=== PATIENT | male | born 1950 | race Caucasian/White ===

== ENCOUNTER 2020-12-03 10:38 | Outpatient (REF) | payer MEDICARE, SELFPAY ==
[2020-12-03 11:54] LABS: Estimated Average Glucose 123 mg/dL; Hemoglobin A1c % 5.9 %
[2020-12-03 12:11] LABS: Alanine Aminotransferase 56 U/L (0-40); Albumin Level 4.5 g/dL (3.5-5.0); Alkaline Phosphatase 113 U/L (39-117); Aspartate Amino Transferase 36 U/L (5-37); Bilirubin Direct 0.4 mg/dL (0.0-0.5); Bilirubin Total 1.1 mg/dL (0.0-1.0); Cholesterol 201 mg/dL; Glucose Fasting 110 mg/dL (60-99); HDL Cholesterol 46 mg/dL; LDL Cholesterol Calculated 120 mg/dl; Total Protein 7.5 g/dL (6.5-8.0); Triglycerides 179 mg/dL
[2020-12-03 12:58] LABS: Reflex LDLD? No
== END 2020-12-03 10:39 | disposition home or self-care (01) ==
LOC: HO.LNP 10:38
PROVIDERS: Visit Provider Internal Medicine
DX: R73.03 Prediabetes (principal); R79.89 Other specified abnormal findings of blood chemistry; E78.00 Pure hypercholesterolemia, unspecified
CPT/HCPCS: 80061; 80076; 82947; 83036

== ENCOUNTER 2021-06-03 10:50 | Outpatient (REF) | payer MEDICARE, SELFPAY ==
[2021-06-03 10:55] LABS: MANUAL DIFF FLAG NO
[2021-06-03 11:07] LABS: Basophils Absolute Auto 0.1 X10*3/uL (0.0-0.2); Eosinophils Absolute Auto 0.3 X10*3/uL (0.0-0.4); Eosinophils Percent Auto 4.1 % (0-4); Hematocrit 49.4 % (42-52); Hemoglobin 16.3 g/dl (14.0-18.0); Imm Gran Abs Auto 0.02 X10*3/uL (0.00-0.03); Imm Gran Pct Auto 0.3 % (0.0-0.4); Lymphocytes Absolute Auto 0.9 X10*3/uL (1.2-4.9); Lymphocytes Percent Auto 15.4 % (20-40); Mean Corpuscular Hemoglobin 30.2 pg (27.0-33.0); Mean Corpuscular Volume 91.5 fL (80-98); Mean Platelet Volume 10.8 fL (9.4-12.4); Monocytes Absolute Auto 0.7 X10*3/uL (0.1-1.2); Monocytes Percent Auto 11.5 % (2-11); Neutrophils Absolute Auto 4.1 X10*3/uL (2.0-8.3); Neutrophils Percent Auto 67.7 % (45-73); Platelet Count 219 X10*3/uL (160-400); Red Cell Distribution Width 13.1 % (11.0-16.0); White Blood Count 6.1 X10*3/uL (4.8-10.8)
[2021-06-03 11:34] LABS: Estimated Average Glucose 123 mg/dL; Hemoglobin A1c % 5.9 %
[2021-06-03 11:36] LABS: Alanine Aminotransferase 47 U/L (0-40); Albumin Level 4.1 g/dL (3.5-5.0); Alkaline Phosphatase 92 U/L (39-117); Anion Gap 16 (12-20); Aspartate Amino Transferase 40 U/L (5-37); Bilirubin Total 1.8 mg/dL (0.0-1.0); Blood Urea Nitrogen 18 mg/dL (9-16); Calcium 9.2 mg/dL (8.4-10.2); Carbon Dioxide 24 mmol/L (22-29); Chloride 105 mmol/L (96-108); Cholesterol 171 mg/dL; Estimated Glomerular Filt Rate 56; Glucose Fasting 115 mg/dL (60-99); HDL Cholesterol 45 mg/dL; LDL Cholesterol Calculated 103 mg/dl; Potassium 3.9 mmol/L (3.3-5.1); Sodium 141 mmol/L (135-145); Total Protein 6.8 g/dL (6.5-8.0); Triglycerides 115 mg/dL
[2021-06-03 12:01] LABS: PSA,Total (Free>4and<10) 1.09 ng/mL (0.00-4.00)
[2021-06-03 12:28] LABS: Appearance Urine CLEAR; Color Urine YELLOW; Glucose Urine UA NEG (NEG); Leukocyte Esterase Urine NEG (NEG); Nitrite Urine NEG (NEG); Specific Gravity - Urine 1.025 (1.005-1.025); Urine Blood NEG (NEG); Urine Ketones 5 MG/DL (NEG); Urine Protein 1+ MG/DL (NEG-TRACE)
[2021-06-03 12:41] LABS: Mucus Urine 1+ /LPF; RBC Urine 0 /HPF (0); WBC Urine 0 /HPF (0-4)
[2021-06-03 13:31] LABS: Microalbum/Creatinine Ratio Ur 5.1 ug/mg cr
== END 2021-06-03 10:51 | disposition home or self-care (01) ==
LOC: HO.LNP 10:50
PROVIDERS: Visit Provider Internal Medicine
DX: Z12.5 Encounter for screening for malignant neoplasm of prostate (principal); E78.00 Pure hypercholesterolemia, unspecified; R73.03 Prediabetes; R74.8 Abnormal levels of other serum enzymes; R97.20 Elevated prostate specific antigen [PSA]
CPT/HCPCS: 80053; 80061; 81001; 81003; 82043; 83036; 84153; 85025

== ENCOUNTER 2021-06-24 09:42 | Outpatient (REF) | payer MEDICARE, SELFPAY | END 2021-06-24 09:43 | disposition home or self-care (01) | LOC: HO.LAB 09:42 | PROVIDERS: PCP Internal Medicine; Visit Provider Internal Medicine | DX: Z20.822 Contact with and (suspected) exposure to COVID-19 (principal) | CPT/HCPCS: C9803; U0003; U0005 ==

== ENCOUNTER 2021-07-08 08:10 | Outpatient (REF) | payer MEDICARE, SELFPAY ==
--- NOTE | ~2021-07-08 | US_ITS ---
EXAMINATION: US ABDOMEN COMPLETE CLINICAL INFORMATION: Hepatomegaly. COMPARISON: Ultrasound renal 04/02/2015. Ultrasound abdomen 03/14/2015. CT abdomen and pelvis 04/29/2015. TECHNIQUE: Real-time imaging of the abdominal viscera. FINDINGS: PANCREAS: No abnormal mass or peripancreatic inflammatory changes seen. ABDOMINAL AORTA: The proximal, mid, and distal segments are normal in caliber. INFERIOR VENA CAVA: Visualized portions are normal. LIVER: The liver is prominent measuring approximately 19 cm in vertical span with increased echogenicity consistent with fatty infiltration. The liver contour is normal. No focal hepatic lesion. There is no intrahepatic biliary duct dilatation seen. GALLBLADDER: Normal. The gallbladder is physiologically distended without evidence of stones, sludge, polyps, wall thickening or pericholecystic fluid. COMMON BILE DUCT: Normal in caliber measuring 0.5 cm in diameter. RIGHT KIDNEY: Within the midpole there is a 4 cm simple appearing cyst. No hydronephrosis or renal calculi. The kidney measures 12.7 cm in maximum dimension. LEFT KIDNEY: Within the upper pole there is an 8 mm simple appearing cyst. No hydronephrosis or renal calculi. The kidney measures 10.8 cm in maximum dimension. SPLEEN: Normal. The spleen measures 11.0 cm in maximum dimension. FREE FLUID: None. US/US abdomen complete IMPRESSION: Findings consistent with fatty infiltration of the liver without focal mass. Prominent liver at 19 cm in vertical span. Bilateral renal cysts.
== END 2021-07-08 08:11 | disposition home or self-care (01) ==
LOC: HO.US 08:10
PROVIDERS: PCP Internal Medicine; Visit Provider Internal Medicine
DX: R16.0 Hepatomegaly, not elsewhere classified (principal)
CPT/HCPCS: 76700

== ENCOUNTER 2021-09-04 09:58 | Outpatient (REF) | payer MEDICARE, SELFPAY ==
--- NOTE | ~2021-09-04 | US_ITS ---
EXAMINATION: US COMPLETE ABDOMEN WITH LIVER ELASTOGRAPHY CLINICAL INFORMATION: Fatty liver. COMPARISON: Previous abdominal ultrasound most recent June 2021 TECHNIQUE: Real-time imaging of the abdominal viscera. Noninvasive ultrasound liver fibrosis assessment is performed using Aris ElastPQ point quantification shear wave elastography (pSWE) with a C5-2 MHz transducer. Multiple elastography samples are obtained. FINDINGS: PANCREAS: Not well visualized due to overlying bowel gas. ABDOMINAL AORTA: The proximal, middle, and distal aortic segments are normal in caliber. INFERIOR VENA CAVA: Visualized portions are normal. LIVER: Liver echotexture is increased. The liver is enlarged. The liver is normal in contour. No focal lesion or intrahepatic biliary duct dilatation. The right lobe measures 18 cm in length. The left lobe measures 11 cm in length. Portal flow is normal/hepatopedal. Shear wave liver elastography median stiffness is 1.9 m/s (reference: normal median stiffness is 1.3 m/s or less). IQR/median stiffness to assess sampling precision is 0.05 (reference: good quality data set is IQR/median stiffness of 0.15 or less). GALLBLADDER: The gallbladder is normal in size. There is a small 3 mm echogenic density that does not move or shadow probably representing a small gallbladder wall polyp. The gallbladder is otherwise unremarkable. COMMON BILE DUCT: Normal in caliber measuring 0.3 cm in diameter. RIGHT KIDNEY: There is a 3.3 x 3.7 x 3.7 cm cyst in the midpole. No hydronephrosis. No renal calculi. The kidney measures 11.6 cm in maximum dimension. LEFT KIDNEY: There is a 1 cm cyst in the upper pole. No hydronephrosis. No renal calculi. The kidney measures 12 cm in maximum dimension. SPLEEN: Normal. The spleen measures 11 cm in maximum dimension. FREE FLUID: None. US/US abdomen comp w elastography IMPRESSION: 1. Enlarged echogenic liver probably representing fatty infiltration. Question small gallbladder wall polyp. Bilateral renal cysts. 2. Liver elastography: Adequate liver sampling. Slightly elevated liver stiffness suggestive of compensated advanced chronic liver disease but need further test for confirmation. REFERENCE: Society of Radiologists in Ultrasound Liver Stiffness Thresholds (2020): LIVER STIFFNESS THRESHOLDS: *Liver Stiffness equal or less than 1.3 m/s: High probability of being normal. *Liver Stiffness less than 1.7 m/s: In the absence of other known clinical signs, rules out compensated advanced chronic liver disease. *Liver Stiffness 1.7-2.1 m/s: Suggestive of compensated advanced chronic liver disease but need further test for confirmation. *Liver Stiffness over 2.1 m/s: Rules in compensated advanced chronic liver disease. *Liver Stiffness over 2.4 m/s: Suggestive of clinically significant portal hypertension. QUALITY OF DATA SET: *IQR/Median value equal or less than 0.15 implies a quality data set. *IQR/Median value over 0.15 implies a poor quality data set. SIGNIFICANT CHANGE FROM PRIOR EXAM: Significant change if liver stiffness measurement is 10% or greater from prior exam. OTHER CONSIDERATIONS: The stage of liver fibrosis may be overestimated in the setting of acute hepatitis, liver inflammation, elevated liver function tests, hepatic vascular congestion, obstructive cholestasis, non-fasting state, and infiltrative diseases such as amyloidosis and lymphoma. In some patients with NAFLD, the liver stiffness thresholds for compensated advanced chronic liver disease may be lower. In causes other than viral hepatitis and NAFLD, liver stiffness thresholds are not well established.
== END 2021-09-04 09:59 | disposition home or self-care (01) ==
LOC: HO.US 09:58
PROVIDERS: PCP Internal Medicine; Visit Provider Internal Medicine
DX: K76.0 Fatty (change of) liver, not elsewhere classified (principal)
CPT/HCPCS: 76705; 76981

== ENCOUNTER 2021-12-04 10:35 | Outpatient (REF) | payer MEDICARE, SELFPAY ==
[2021-12-04 12:01] LABS: Alanine Aminotransferase 69 U/L (0-40); Albumin Level 4.2 g/dL (3.5-5.0); Alkaline Phosphatase 116 U/L (39-117); Aspartate Amino Transferase 57 U/L (5-37); Bilirubin Direct 0.5 mg/dL (0.0-0.5); Bilirubin Total 1.3 mg/dL (0.0-1.0); Cholesterol 205 mg/dL; Glucose Fasting 120 mg/dL (60-99); HDL Cholesterol 50 mg/dL; LDL Cholesterol Calculated 124 mg/dl; Total Protein 7.7 g/dL (6.5-8.0); Triglycerides 158 mg/dL
[2021-12-04 12:11] LABS: Estimated Average Glucose 131 mg/dL; Hemoglobin A1C 214.4059 umol/L; Hemoglobin A1c % 6.2 %
[2021-12-04 12:25] LABS: Reflex LDLD? No
== END 2021-12-04 10:36 | disposition home or self-care (01) ==
LOC: HO.LNP 10:35
PROVIDERS: Visit Provider Internal Medicine
DX: R73.09 Other abnormal glucose (principal); E78.00 Pure hypercholesterolemia, unspecified
CPT/HCPCS: 80061; 80076; 82947; 83036

== ENCOUNTER 2021-12-19 15:47 | Outpatient (REF) | payer MEDICARE, SELFPAY ==
[2021-12-19 16:44] LABS: INTERNATIONAL NORM RATIO 1.1 (0.9-1.1); Prothrombin Time 12.7 SEC (9.9-13.0)
[2021-12-19 16:56] LABS: Iron 103 mcg/dL (45-160); Percent Iron Saturation 34 % (15-50); Total Iron Binding Capacity 305 mcg/dL (228-428); Unsaturated Iron Binding 202 ug/dL
[2021-12-19 17:18] LABS: Ferritin 625 ng/mL (20-250)
[2021-12-20 13:42] LABS: Alpha 1 Anti-trypsin 191 mg/dL (83-199)
[2021-12-20 14:36] LABS: Anti Nuclear Antibody Screen NEGATIVE (NEGATIVE)
[2021-12-22 08:28] LABS: HBc Num1 0.17 S/CO (0.00-0.79); Hepatitis B Core Antibody Nonreactive (Nonreactive); Hepatitis B Surface Antigen Negative (Negative)
[2021-12-22 08:46] LABS: HBS Num1 0.29 mIU/mL (0-7.99); ~HepC Num1 0.09 S/CO (0.00-0.79); ~Hepatitis B Surface Antibody NONREACTIVE (Nonreactive); ~Hepatitis C Antibody Nonreactive (Nonreactive)
[2021-12-22 16:51] LABS: Mitochondrial Antibodies NEGATIVE (NEGATIVE)
[2021-12-23 21:56] LABS: Smooth Muscle Antibody <20 U (<20)
[2021-12-24 09:05] LABS: Hepatitis A Antibody IgM 0.18 Index (0-0.79); ~Hepatitis A Antibody IgM Nonreactive (Nonreactive)
== END 2021-12-19 15:48 | disposition home or self-care (01) ==
LOC: HO.LAB 15:47
PROVIDERS: PCP Internal Medicine; Visit Provider Internal Medicine
DX: R79.89 Other specified abnormal findings of blood chemistry (principal); K76.0 Fatty (change of) liver, not elsewhere classified
CPT/HCPCS: 36415; 82103; 82728; 83540; 85610; 86015; 86038; 86039; 86255; 86256; 86704; 86706; 86709; 86803; 87340

== ENCOUNTER 2022-01-14 12:21 | Emergency (ER) | payer MEDICARE, SELFPAY ==
--- NOTE | 2022-01-14 | ECG_ITS ---
Test Reason : abdominal pain Blood Pressure : / mmHG Vent. Rate : 077 BPM Atrial Rate : 077 BPM P-R Int : 194 ms QRS Dur : 090 ms QT Int : 356 ms P-R-T Axes : 052 020 030 degrees QTc Int : 402 ms Normal sinus rhythm Nonspecific T wave abnormality Abnormal ECG No significant changes when compared with the previous EKG of 26 sep 2017 Referred By: Melo Mcdaniel Electronically Signed By:GASTON MADRID
--- NOTE | ~2022-01-14 | CT_ITS ---
EXAMINATION: CT ABDOMEN AND PELVIS WITHOUT CONTRAST CLINICAL INFORMATION: Left lower quadrant and flank pain COMPARISON: None TECHNIQUE: Multidetector volumetric imaging was performed from the superior aspect of the liver through the pubic symphysis. Sagittal and coronal reformatted images were obtained on the technologist's workstation. This CT examination was performed using dose optimization techniques as appropriate, variously including the following: *Automated exposure control *Adjustment of mA and/or kV according to patient size (this includes techniques or standardized protocols for targeted exams where dose is matched to indication/reason for exam; i.e. extremities or head) *Use of iterative reconstruction technique DLP: 1047 mGy-cm FINDINGS: LUNG BASES: The visualized lung bases are unremarkable. LIVER, GALLBLADDER, AND BILIARY TREE: The liver is normal in size, shape, and attenuation. No focal hepatic lesion or biliary ductal dilatation is present. There is a punctate radiopaque calculi in the dependent portion of gallbladder. No wall thickening seen. PANCREAS: Unremarkable. SPLEEN: Unremarkable. ADRENAL GLANDS: Unremarkable. KIDNEYS AND URETERS: The kidneys are normal in size, shape, and attenuation. No hydronephrosis, hydroureter, or calculi seen. No perinephric stranding. There is 4.8 cm cyst midpole right kidney. BLADDER: Unremarkable. GASTROINTESTINAL TRACT: There is scattered stool and gas seen throughout the colon without any significant distention. Few scattered diverticuli seen throughout the colon and sigmoid region without diverticulitis. The small bowel loops are normal caliber. Appendix is normal caliber.. ABDOMINAL WALL: No significant hernia is appreciated. LYMPH NODES: Normal. VASCULAR: Mild arthroscopic calcification of abdominal aorta is noted. PELVIC VISCERA: There is no free air or free fluid. OSSEOUS STRUCTURES: There are degenerative disc changes with vacuum disc phenomena and spondylosis L3-L4, L4-L5 and L5-S1 disc levels. No aggressive lytic or sclerotic process seen. There are endplate Schmorl's node L3-L4 and L4-L5 disc levels. CT/CT abdomen pelvis wo con IMPRESSION: Suspect tiny dependent gallstones without wall thickening. Scattered colonic diverticulosis without diverticulitis, obstruction, free air or free fluid. Degenerative disc changes L3-L4, L4-L5 and L5-S1 disc levels. Fleischner guidelines were followed.
[2022-01-14 12:29] VITALS: BP 121/81; PULSE 94; RESP 18; TEMP 36.8; O2SAT 95; BMI 31.5
[2022-01-14] MEDS: Ondansetron ODT 4 MG TAB.RAPDIS TRANSLINGU (13:36)
[2022-01-14 13:53] LABS: Basophils Percent Auto 0.5 % (0-2); Eosinophils Percent Auto 0.3 % (0-4); Hematocrit 52.7 % (42.0-52.0); Hemoglobin 17.4 g/dl (14.0-18.0); Imm Gran Abs Auto 0.02 X10*3/uL (0.00-0.03); Imm Gran Pct Auto 0.3 % (0.0-0.4); Lymphocytes Absolute Auto 0.2 X10*3/uL (1.2-4.9); Lymphocytes Percent Auto 1.9 % (20-40); MANUAL DIFF FLAG SCAN; Mean Corpuscular Hemoglobin 29.5 pg (27.0-33.0); Mean Corpuscular Volume 89.3 fL (80.0-98.0); Mean Platelet Volume 9.9 fL (9.4-12.4); Monocytes Absolute Auto 0.3 X10*3/uL (0.1-1.2); Monocytes Percent Auto 3.9 % (2-11); Neutrophils Absolute Auto 7.2 x10*3/uL (2.0-8.3); Neutrophils Percent Auto 93.1 % (45-73); Platelet Count 225 X10*3/uL (160-400); Red Cell Distribution Width 13.2 % (11.0-16.0); SCAN SMEAR FLAG 1; White Blood Count 7.7 X10*3/uL (4.8-10.8)
[2022-01-14 14:02] LABS: Appearance Urine CLEAR; Color Urine YELLOW; Glucose Urine UA NEG (NEG); Leukocyte Esterase Urine NEG (NEG); Nitrite Urine NEG (NEG); PH 5.5 (5.0-8.0); Specific Gravity - Urine >= 1.030 (1.005-1.025); Urine Blood NEG (NEG); Urine Ketones 5 MG/DL (NEG); Urine Protein TRACE MG/DL (NEG-TRACE)
[2022-01-14 14:19] LABS: SLIDE REVIEW VERIFIED
[2022-01-14 14:25] LABS: Anion Gap 16 (12-20); Blood Urea Nitrogen 21 mg/dL (9-16); Calcium 9.8 mg/dL (8.4-10.2); Carbon Dioxide 25 mmol/L (22-29); Chloride 104 mmol/L (96-108); Creatinine Clr Calc Pharmacy 58.1; Estimated Glomerular Filt Rate 52; Glucose Random 153 mg/dL (60-115); Potassium 4.1 mmol/L (3.3-5.1); Sodium 141 mmol/L (135-145)
--- NOTE | 2022-01-14 15:36 | ED.ABDPAIN ---
HPI - Abdominal Pain General Chief Complaint: Abdominal Pain Stated Complaint: Chest wall pain/Abd pain Time Seen by Provider: 01/14/22 15:29 Source: patient, family and old records reviewed History of Present Illness HPI narrative: Patient with nausea and vomiting which started this morning. He complains of severe nausea and some left lower quadrant abdominal pain. He states he had similar symptoms in the past when he had kidney stone. The last episode was 3 years ago approximately. He does not think he followed up with a urologist at that time. Today's episode feels the same as far as the nausea goes, but the pain is not as bad as when he had this stone the past. No history of diverticulitis. No diarrhea No urinary symptoms No fevers or chills No change with movement Related Data Previous Rx's Medication Instructions Recorded ondansetron 4 mg disintegrating 4 mg PO Q8H PRN #10 tab 01/14/22 tablet Allergies Allergy/AdvReac Type Severity Reaction Status Date / Time fentanyl [FENTANYL] Allergy Unknown REDNESS, Unverified 06/06/20 15:31 RASH- ONLY ONCE PER PT midazolam [From VERSED] Allergy Unknown REDNESS, Unverified 06/06/20 15:31 RASH- PT NOT SURE propofol Allergy Unknown Verified 03/03/19 00:00 Review of Systems Comments: No fevers or chills Comments: No chest pain Comments: No difficulty breathing or cough Comments: Abdominal pain and nausea as mentioned Comments: No urinary symptoms Comments: No musculoskeletal complaints Comments: No focal weakness PMFSH Past Medical History Medical History (Updated 01/14/22 @ 19:15 by Melo Mcdaniel MD) GERD (gastroesophageal reflux disease) Hyperlipidemia IBS (irritable bowel syndrome) Social History Social History Advance Directives: No Advance Directives Information Provided: No Physical Exam ED Vital Signs: Vital Signs - 24 hr 01/14/22 12:29 01/14/22 17:21 Temperature 98.3 F 97.8 F Pulse Rate 94 86 Respiratory Rate 18 18 Blood Pressure 121/81 130/83 Pulse Oximetry 95 95 BMI result Body Mass Index 31.5 Const Other: Awake and alert in no acute distress Resp Other: Clear and equal bilaterally Cardio Other: Regular rate and rhythm without murmurs rubs or gallops GI Other: Soft. Mild left lower quadrant tenderness to palpation without guarding or rebound. No flank tenderness to percussion Skin Other: Warm and dry Neuro Other: No obvious focal neuro deficits Course Course Course Narrative: Vomiting with lower abdominal pain Urinary tract infection Kidney stone Diverticulitis Gastroenteritis Dehydration IV fluids IV Toradol IV Zofran 15:39. Workup shows normal CBC. Chemistries show a creatinine of 1.36. Random glucose 153. Remainder of chemistries are normal. Urinalysis is normal without blood 19:15. Patient is feeling considerably better. CT scan results show no evidence of kidney stones or diverticulitis or other significant abnormality. Will discharge patient home with antiemetics MDM - Abdominal Pain Lab Data Result diagrams: 01/14/22 13:43 01/14/22 13:43 Labs: Lab Results 01/14/22 01/14/22 01/14/22 Range/Units 13:43 13:43 13:49 WBC 7.7 (4.8-10.8) X10*3/uL RBC 5.90 H (4.60-5.80) X10*6/uL Hgb 17.4 (14.0-18.0) g/dl Hct 52.7 H (42.0-52.0) % MCV 89.3 (80.0-98.0) fL MCH 29.5 (27.0-33.0) pg MCHC 33.0 (31.0-36.0) g/dl RDW 13.2 (11.0-16.0) % Plt Count 225 (160-400) X10*3/uL MPV 9.9 (9.4-12.4) fL Immature Gran % (Auto) 0.3 (0.0-0.4) % Neut % (Auto) 93.1 H (45-73) % Lymph % (Auto) 1.9 L (20-40) % [place] % (Auto) 3.9 (2-11) % Eos % (Auto) 0.3 (0-4) % Baso % (Auto) 0.5 (0-2) % Lymph # (Auto) 0.2 L (1.2-4.9) X10*3/uL [place] # (Auto) 0.3 (0.1-1.2) X10*3/uL Eos # (Auto) 0.0 (0.0-0.4) X10*3/uL Baso # (Auto) 0.0 (0.0-0.2) X10*3/uL Abs Immat Gran (auto) 0.02 (0.00-0.03) X10*3/uL Absolute Neuts (auto) 7.2 (2.0-8.3) x10*3/uL Absolute Nucleated RBC 0.000 (0.0-0.012) X10*3/uL Nucleated RBC % (auto) 0.0 (0.0-0.2) /100WBC Smear Tech's Comments VERIFIED Sodium 141 (135-145) mmol/L Potassium 4.1 (3.3-5.1) mmol/L Chloride 104 (96-108) mmol/L Carbon Dioxide 25 (22-29) mmol/L Anion Gap 16 (12-20) BUN 21 H (9-16) mg/dL Creatinine 1.36 (0.5-1.4) mg/dL Estim Creat Clear Calc 58.1 Estimated GFR 52 Random Glucose 153 H (60-115) mg/dL Calcium 9.8 D (8.4-10.2) mg/dL Urine Color YELLOW Urine Appearance CLEAR Urine pH 5.5 (5.0-8.0) Ur Specific [place] >= 1.030 H (1.005-1.025) Urine Protein TRACE (NEG-TRACE) MG/DL Urine Glucose (UA) NEG (NEG) MG/DL Urine Ketones 5 (NEG) MG/DL Urine Blood NEG (NEG) Urine Nitrite NEG (NEG) Ur Leukocyte Esterase NEG (NEG) Discharge Plan Discharge Clinical Impression: Gastroenteritis Patient Disposition: Home, Self-Care Instructions: Acute Nausea and Vomiting (ED) Prescriptions: New ondansetron 4 mg tablet,disintegrating 4 mg PO Q8H PRN (Reason: nausea and vomiting) Qty: 10 0RF
[2022-01-14] MEDS: Ketorolac Tromethamine 15 MG/ML VIAL 30 MG IVPUSH (16:22)
[2022-01-14] MEDS: 0.9 % Sodium Chloride 1,000 ML 999 ML IV (16:22)
[2022-01-14 17:21] VITALS: BP 130/83; PULSE 86; RESP 18; TEMP 36.6; O2SAT 95
== END 2022-01-14 19:40 | disposition home or self-care (01) ==
PROVIDERS: Emergency Provider Emergency Medicine; PCP Internal Medicine
DX: K52.9 Noninfective gastroenteritis and colitis, unspecified (principal); Z87.442 Personal history of urinary calculi
CPT/HCPCS: 36415; 74176; 80048; 81003; 85025; 93005; 96361; 96374; 99284; 99285; J1885

== ENCOUNTER 2022-02-02 10:21 | Outpatient (REF) | payer MEDICARE, SELFPAY ==
[2022-02-02 10:24] LABS: MANUAL DIFF FLAG NO
[2022-02-02 10:45] LABS: Basophils Absolute Auto 0.1 X10*3/uL (0.0-0.2); Eosinophils Absolute Auto 0.2 X10*3/uL (0.0-0.4); Eosinophils Percent Auto 3.3 % (0-4); Hemoglobin 15.7 g/dl (14.0-18.0); Imm Gran Abs Auto 0.02 X10*3/uL (0.00-0.03); Imm Gran Pct Auto 0.4 % (0.0-0.4); Lymphocytes Absolute Auto 1.2 X10*3/uL (1.2-4.9); Lymphocytes Percent Auto 22.8 % (20-40); Mean Corpuscular HGB Conc 33.4 g/dl (31.0-36.0); Mean Corpuscular Hemoglobin 29.9 pg (27.0-33.0); Mean Corpuscular Volume 89.5 fL (80.0-98.0); Monocytes Absolute Auto 0.6 X10*3/uL (0.1-1.2); Monocytes Percent Auto 11.3 % (2-11); Neutrophils Absolute Auto 3.2 x10*3/uL (2.0-8.3); Neutrophils Percent Auto 61.2 % (45-73); Platelet Count 237 X10*3/uL (160-400); Red Blood Count 5.25 X10*6/uL (4.60-5.80); Red Cell Distribution Width 13.2 % (11.0-16.0); White Blood Count 5.2 X10*3/uL (4.8-10.8)
== END 2022-02-02 10:22 | disposition home or self-care (01) ==
LOC: HO.LNP 10:21
PROVIDERS: Visit Provider Internal Medicine
DX: R71.8 Other abnormality of red blood cells (principal)
CPT/HCPCS: 85025

== ENCOUNTER 2022-03-10 10:42 | Outpatient (REF) | payer MEDICARE, SELFPAY ==
[2022-03-10 11:59] LABS: Alanine Aminotransferase 79 U/L (0-40); Albumin Level 4.1 g/dL (3.5-5.0); Alkaline Phosphatase 115 U/L (39-117); Aspartate Amino Transferase 67 U/L (5-37); Bilirubin Direct 0.5 mg/dL (0.0-0.5); Bilirubin Total 1.4 mg/dL (0.0-1.0); Cholesterol 188 mg/dL; Glucose Fasting 118 mg/dL (60-99); HDL Cholesterol 49 mg/dL; LDL Cholesterol Calculated 111 mg/dl; Total Protein 7.5 g/dL (6.5-8.0); Triglycerides 144 mg/dL
[2022-03-10 13:46] LABS: Estimated Average Glucose 126 mg/dL
[2022-03-10 13:48] LABS: Reflex LDLD? No
== END 2022-03-10 10:43 | disposition home or self-care (01) ==
LOC: HO.LNP 10:42
PROVIDERS: PCP Internal Medicine; Visit Provider Internal Medicine
DX: E78.00 Pure hypercholesterolemia, unspecified (principal); R73.03 Prediabetes
CPT/HCPCS: 80061; 80076; 82947; 83036

== ENCOUNTER 2022-06-05 07:34 | Outpatient (REF) | payer MEDICARE, SELFPAY ==
[2022-06-05 07:49] LABS: MANUAL DIFF FLAG NO
[2022-06-05 08:20] LABS: Basophils Absolute Auto 0.1 X10*3/uL (0.0-0.2); Basophils Percent Auto 1.4 % (0-2); Eosinophils Absolute Auto 0.2 X10*3/uL (0.0-0.4); Eosinophils Percent Auto 4.6 % (0-4); Hematocrit 47.7 % (42.0-52.0); Hemoglobin 16.4 g/dl (14.0-18.0); Imm Gran Abs Auto 0.01 X10*3/uL (0.00-0.03); Imm Gran Pct Auto 0.2 % (0.0-0.4); Lymphocytes Percent Auto 20.6 % (20-40); Mean Corpuscular HGB Conc 34.4 g/dl (31.0-36.0); Mean Corpuscular Hemoglobin 30.9 pg (27.0-33.0); Mean Platelet Volume 10.6 fL (9.4-12.4); Monocytes Absolute Auto 0.6 X10*3/uL (0.1-1.2); Monocytes Percent Auto 11.4 % (2-11); Neutrophils Absolute Auto 3.1 x10*3/uL (2.0-8.3); Neutrophils Percent Auto 61.8 % (45-73); Platelet Count 214 X10*3/uL (160-400); Red Cell Distribution Width 13.4 % (11.0-16.0)
[2022-06-05 08:30] LABS: Estimated Average Glucose 123 mg/dL; Hemoglobin A1c % 5.9 %
[2022-06-05 08:54] LABS: Alanine Aminotransferase 96 U/L (0-40); Albumin Level 4.1 g/dL (3.5-5.0); Alkaline Phosphatase 114 U/L (39-117); Anion Gap 17 (12-20); Aspartate Amino Transferase 111 U/L (5-37); Bilirubin Total 1.4 mg/dL (0.0-1.0); Blood Urea Nitrogen 18 mg/dL (9-16); Calcium 9.5 mg/dL (8.4-10.2); Carbon Dioxide 24 mmol/L (22-29); Chloride 104 mmol/L (96-108); Cholesterol 210 mg/dL; Estimated Glomerular Filt Rate 58; Glucose Fasting 113 mg/dL (60-99); HDL Cholesterol 46 mg/dL; LDL Cholesterol Calculated 135 mg/dl; Sodium 141 mmol/L (135-145); Total Protein 7.6 g/dL (6.5-8.0); Triglycerides 145 mg/dL
[2022-06-05 09:13] LABS: PSA,Total (Free>4and<10) 1.42 ng/mL (0.00-4.00)
[2022-06-05 09:20] LABS: Appearance Urine Clear; Color Urine Dark Yellow; Glucose Urine UA Negative (Negative); Leukocyte Esterase Urine Trace (Negative); Nitrite Urine Negative (Negative); PH 5.5 (5.0-9.0); UMIC TRIGGER UA YES; Urine Blood Negative (Negative); Urine Ketones Trace mg/dL (Negative); Urine Protein Negative (Neg-Trace)
[2022-06-05 09:25] LABS: Bacteria Urine None Seen (None Seen); Hyaline Casts Urine 0-2 /LPF (0-2); RBC Urine 0-2 /HPF (0-2); Squamous Epithelial Cell Urine 0-2 /HPF (0-2); WBC Urine 0-5 /HPF (0-5)
[2022-06-05 09:37] LABS: Creatinine Urine 260.87 mg/dL; Microalbum/Creatinine Ratio Ur 7.6 ug/mg cr
== END 2022-06-05 07:35 | disposition home or self-care (01) ==
LOC: HO.LAB 07:34
PROVIDERS: PCP Internal Medicine; Visit Provider Internal Medicine
DX: R73.09 Other abnormal glucose (principal); R74.8 Abnormal levels of other serum enzymes; E78.00 Pure hypercholesterolemia, unspecified; R97.20 Elevated prostate specific antigen [PSA]; Z12.5 Encounter for screening for malignant neoplasm of prostate
CPT/HCPCS: 36415; 80053; 80061; 81001; 82043; 83036; 84153; 85025

== ENCOUNTER 2022-06-08 09:43 | Outpatient (REF) | payer MEDICARE, SELFPAY ==
[2022-06-08 09:56] LABS: MANUAL DIFF FLAG NO
[2022-06-08 10:54] LABS: Basophils Absolute Auto 0.1 X10*3/uL (0.0-0.2); Eosinophils Absolute Auto 0.2 X10*3/uL (0.0-0.4); Hematocrit 47.9 % (42.0-52.0); Hemoglobin 16.2 g/dl (14.0-18.0); Imm Gran Abs Auto 0.01 X10*3/uL (0.00-0.03); Imm Gran Pct Auto 0.2 % (0.0-0.4); Mean Corpuscular HGB Conc 33.8 g/dl (31.0-36.0); Mean Corpuscular Hemoglobin 30.5 pg (27.0-33.0); Mean Corpuscular Volume 90.2 fL (80.0-98.0); Mean Platelet Volume 11.3 fL (9.4-12.4); Monocytes Absolute Auto 0.6 X10*3/uL (0.1-1.2); Monocytes Percent Auto 11.9 % (2-11); Neutrophils Absolute Auto 3.3 x10*3/uL (2.0-8.3); Neutrophils Percent Auto 64.9 % (45-73); Platelet Count 201 X10*3/uL (160-400); Red Blood Count 5.31 X10*6/uL (4.60-5.80); Red Cell Distribution Width 13.2 % (11.0-16.0); White Blood Count 5.1 X10*3/uL (4.8-10.8)
[2022-06-08 11:45] LABS: Alanine Aminotransferase 72 U/L (0-40); Alkaline Phosphatase 111 U/L (39-117); Anion Gap 16 (12-20); Aspartate Amino Transferase 65 U/L (5-37); Bilirubin Direct 0.4 mg/dL (0.0-0.5); Bilirubin Total 1.1 mg/dL (0.0-1.0); Blood Urea Nitrogen 14 mg/dL (9-16); Calcium 9.3 mg/dL (8.4-10.2); Carbon Dioxide 25 mmol/L (22-29); Chloride 104 mmol/L (96-108); Estimated Glomerular Filt Rate > 60; Glucose Random 100 mg/dL (60-115); Potassium 4.2 mmol/L (3.3-5.1); Sodium 141 mmol/L (135-145); Total Protein 7.4 g/dL (6.5-8.0)
[2022-06-08 11:49] LABS: Free T4 (Free Thyroxine) 0.99 ng/dL (0.71-1.85); Thyroid Stimulating Hormone 1.74 uIU/mL (0.32-4.0)
== END 2022-06-08 09:44 | disposition home or self-care (01) ==
LOC: HO.LAB 09:43
PROVIDERS: PCP Internal Medicine; Visit Provider Dermatology
DX: L91.8 Other hypertrophic disorders of the skin (principal); L29.8 Other pruritus; L81.4 Other melanin hyperpigmentation; L82.1 Other seborrheic keratosis
CPT/HCPCS: 36415; 80048; 80076; 84439; 84443; 85025

== ENCOUNTER 2022-07-31 09:51 | Outpatient (REF) | payer MEDICARE, SELFPAY ==
[2022-07-31 10:46] LABS: INTERNATIONAL NORM RATIO 1.1 (0.9-1.1); Prothrombin Time 12.4 SEC (10.0-13.1)
[2022-07-31 10:54] LABS: Alanine Aminotransferase 74 U/L (0-40); Albumin Level 4.3 g/dL (3.5-5.0); Alkaline Phosphatase 107 U/L (39-117); Aspartate Amino Transferase 87 U/L (5-37); Bilirubin Direct 0.5 mg/dL (0.0-0.5); Bilirubin Total 1.7 mg/dL (0.0-1.0); Total Protein 7.8 g/dL (6.5-8.0)
[2022-08-06 17:21] LABS: FIB-ALT 56 U/L (9-46); FIB-Alpha-2-Macroglobulin 405 mg/dL (106-279); FIB-Apolipoprotein A1 157 mg/dL (94-176); FIB-GGT 197 U/L (3-70); FIB-Haptoglobin 135 mg/dL (43-212); FIB-Total Bilirubin 1.1 mg/dL (0.2-1.2); Liver Fibrosis Score 0.88; Liver Fibrosis Stage F4; Nec Inflam Act Grade A2; Nec Inflam Act Score 0.55
[2022-08-07 18:32] LABS: Chenodeoxycholic Acid 1.4 umol/L (< OR = 3.1); Cholic Acid <0.5 umol/L (< OR = 1.8); Deoxycholic Acid 0.5 umol/L (< OR = 2.4); Total Bile Acids 1.9 umol/L (< OR = 6.8)
== END 2022-07-31 09:52 | disposition home or self-care (01) ==
LOC: HO.LAB 09:51
PROVIDERS: PCP Internal Medicine; Visit Provider Internal Medicine
DX: K76.0 Fatty (change of) liver, not elsewhere classified (principal); R79.89 Other specified abnormal findings of blood chemistry
CPT/HCPCS: 36415; 80076; 81596; 82542; 85610

== ENCOUNTER 2022-10-19 10:14 | Outpatient (REF) | payer MEDICARE, SELFPAY ==
[2022-10-19 10:37] LABS: MANUAL DIFF FLAG NO
[2022-10-19 10:52] LABS: Basophils Absolute Auto 0.1 X10*3/uL (0.0-0.2); Basophils Percent Auto 1.5 % (0-2); Eosinophils Absolute Auto 0.3 X10*3/uL (0.0-0.4); Eosinophils Percent Auto 4.9 % (0-4); Hemoglobin 16.4 g/dl (14.0-18.0); Imm Gran Abs Auto 0.01 X10*3/uL (0.00-0.03); Imm Gran Pct Auto 0.2 % (0.0-0.4); Lymphocytes Absolute Auto 1.1 X10*3/uL (1.2-4.9); Lymphocytes Percent Auto 19.1 % (20-40); Mean Corpuscular HGB Conc 33.5 g/dl (31.0-36.0); Mean Corpuscular Hemoglobin 29.9 pg (27.0-33.0); Mean Corpuscular Volume 89.4 fL (80.0-98.0); Mean Platelet Volume 10.4 fL (9.4-12.4); Monocytes Absolute Auto 0.5 X10*3/uL (0.1-1.2); Monocytes Percent Auto 9.8 % (2-11); Neutrophils Absolute Auto 3.6 x10*3/uL (2.0-8.3); Neutrophils Percent Auto 64.5 % (45-73); Platelet Count 186 X10*3/uL (160-400); Red Blood Count 5.48 X10*6/uL (4.60-5.80); Red Cell Distribution Width 13.2 % (11.0-16.0); White Blood Count 5.5 X10*3/uL (4.8-10.8)
[2022-10-19 11:02] LABS: INTERNATIONAL NORM RATIO 1.1 (0.9-1.1); Prothrombin Time 12.1 SEC (10.0-13.1)
[2022-10-19 11:04] LABS: Partial Thromboplastin Time 31.6 SEC (26.0-36.4)
[2022-10-19 11:35] LABS: Alanine Aminotransferase 64 U/L (0-40); Alkaline Phosphatase 109 U/L (39-117); Aspartate Amino Transferase 70 U/L (5-37); Bilirubin Direct 0.4 mg/dL (0.0-0.5); Bilirubin Total 1.3 mg/dL (0.0-1.0); Total Protein 7.4 g/dL (6.5-8.0)
== END 2022-10-19 10:15 | disposition home or self-care (01) ==
LOC: HO.LAB 10:14
PROVIDERS: PCP Internal Medicine; Visit Provider Internal Medicine
DX: K76.0 Fatty (change of) liver, not elsewhere classified (principal); R74.8 Abnormal levels of other serum enzymes
CPT/HCPCS: 36415; 80076; 85025; 85610; 85730

== ENCOUNTER 2022-10-23 11:30 | Day surgery (SDC) | payer MEDICARE, SELFPAY ==
[2022-10-23] VITALS (8 sets, daily range): BP systolic 132–151; BP diastolic 75–89; PULSE 58–68; RESP 14–18; TEMP 36.3–36.9; O2SAT 95–98; BMI 31.8
--- NOTE | ~2022-10-23 | US_ITS ---
EXAMINATION: ULTRASOUND-GUIDED LIVER BIOPSY CLINICAL INFORMATION: Fatty liver. COMPARISON: None TECHNIQUE: Following explaining ultrasound-guided right hepatic lobe biopsy procedure, benefits and risk, a written consent was obtained. Patient was placed supine on ultrasound stretcher and preliminary ultrasound imaging was obtained through the epigastric and right lateral abdomen for evaluation of liver. Images were obtained for documentation. An optimal site was selected along the right lateral abdomen and marked. The marked site was cleaned and draped in usual sterile manner and 1% lidocaine was injected at puncture site. Through a small skin incision a 20-gauge guide needle was inserted into the right hepatic lobe under ultrasound guidance. Coaxially a 20-gauge gun was administered and a 3 pass core needle biopsy of right hepatic lobe was performed. Postprocedure the guide was removed and complete hemostasis achieved at puncture site. Patient tolerate procedure extremely well. Conscious sedation was utilized during the exam and patient monitored for 60 minutes by the IR nurse and IR radiologist. FINDINGS: On preliminary ultrasound imaging, the liver is slightly echogenic. No focal lesion seen. 3 core biopsies of the right hepatic lobe was obtained through intercostal space. US/US biopsy liver IMPRESSION: Successful ultrasound-guided right hepatic lobe core biopsy was performed.
[2022-10-23 12:53] LABS: Anion Gap 16 (12-20); Blood Urea Nitrogen 19 mg/dL (9-16); Carbon Dioxide 24 mmol/L (22-29); Chloride 104 mmol/L (96-108); Creatinine Clr Calc Pharmacy 67.4; Estimated Glomerular Filt Rate > 60; Sodium 140 mmol/L (135-145)
[2022-10-23] MEDS: Lidocaine HCl 1 % MPF 5 ML VIAL SUBCUT (14:20)
== END 2022-10-23 16:14 | disposition home or self-care (01) ==
PROVIDERS: Radiology Diagnostic Radiology; PCP Internal Medicine; Visit Provider Internal Medicine
DX: K75.81 Nonalcoholic steatohepatitis (NASH) (principal); K76.0 Fatty (change of) liver, not elsewhere classified; K21.9 Gastro-esophageal reflux disease without esophagitis; E78.00 Pure hypercholesterolemia, unspecified; K58.9 Irritable bowel syndrome, unspecified; Z79.899 Other long term (current) drug therapy
CPT/HCPCS: 36415; 47000; 76942; 80051; 82565; 84520; 88307; 88313; J2250; J3010

== ENCOUNTER 2022-12-02 08:06 | Outpatient (REF) | payer MEDICARE, SELFPAY ==
--- NOTE | ~2022-12-02 | US_ITS ---
EXAMINATION: US ABDOMEN COMPLETE CLINICAL INFORMATION: Fatty liver, cirrhosis, elevated LFTs. COMPARISON: CT abdomen and pelvis without contrast 01/14/2022. US abdomen complete with liver elastography 09/04/2021. Ultrasound abdomen complete 07/08/2021. TECHNIQUE: Real-time imaging of the abdominal viscera. FINDINGS: PANCREAS: The visualized proximal pancreas is within normal limit. The tail is obscured by overlying bowel gas. ABDOMINAL AORTA: Visualized portions demonstrate atherosclerotic disease. INFERIOR VENA CAVA: Visualized portions are normal. LIVER: Enlarged measuring 17.3 cm in length. The liver contour is normal. Increased parenchymal echogenicity. No focal hepatic lesion. There is no intrahepatic biliary duct dilatation seen. GALLBLADDER: There is a 0.5 cm nonmobile hyperechoic focus in the gallbladder wall, likely a polyp previously 0.3 cm on 09/04/2021. The gallbladder is physiologically distended without evidence of stones, sludge, wall thickening or pericholecystic fluid. COMMON BILE DUCT: Normal in caliber measuring 0.3 cm in diameter. RIGHT KIDNEY: Simple cyst in the medial mid pole measuring 4.5 cm for which no imaging follow-up is recommended. No hydronephrosis or renal calculi. The kidney measures 11.6 cm in maximum dimension. LEFT KIDNEY: Simple cyst in the upper pole measuring 1.2 cm, for which no imaging follow-up is recommended. No hydronephrosis or renal calculi. The kidney measures 11.1 cm in maximum dimension. SPLEEN: Normal. The spleen measures 11.6 cm in maximum dimension. FREE FLUID: None. US/US abdomen complete IMPRESSION: 1. Hepatomegaly with increased parenchymal echogenicity suggesting hepatic steatosis or hepatocellular disease. 2. There is a 0.5 cm nonmobile hyperechoic focus in the gallbladder, suggestive of a polyp, previously 0.3 cm on 09/04/2021 and not confidentially identified on 07/08/2021. Given minimal interval growth, a short-term abdominal ultrasound in 3-6 months is recommended and if further growth, surgical consultation.
== END 2022-12-02 08:07 | disposition home or self-care (01) ==
LOC: HO.US 08:06
PROVIDERS: PCP Internal Medicine; Visit Provider Internal Medicine
DX: K76.0 Fatty (change of) liver, not elsewhere classified (principal); K74.69 Other cirrhosis of liver; R79.89 Other specified abnormal findings of blood chemistry
CPT/HCPCS: 76700

== ENCOUNTER 2023-01-05 11:49 | Outpatient (REF) | payer MEDICARE, SELFPAY ==
[2023-01-05 11:52] LABS: MANUAL DIFF FLAG NO
[2023-01-05 12:31] LABS: Basophils Absolute Auto 0.1 X10*3/uL (0.0-0.2); Eosinophils Absolute Auto 0.1 X10*3/uL (0.0-0.4); Eosinophils Percent Auto 2.5 % (0-4); Hematocrit 48.4 % (42.0-52.0); Hemoglobin 16.1 g/dl (14.0-18.0); Imm Gran Abs Auto 0.02 X10*3/uL (0.00-0.03); Imm Gran Pct Auto 0.4 % (0.0-0.4); Lymphocytes Absolute Auto 1.4 X10*3/uL (1.2-4.9); Lymphocytes Percent Auto 27.5 % (20-40); Mean Corpuscular HGB Conc 33.3 g/dl (31.0-36.0); Mean Corpuscular Hemoglobin 31.2 pg (27.0-33.0); Mean Corpuscular Volume 93.8 fL (80.0-98.0); Mean Platelet Volume 11.8 fL (9.4-12.4); Monocytes Absolute Auto 0.6 X10*3/uL (0.1-1.2); Monocytes Percent Auto 10.8 % (2-11); Neutrophils Percent Auto 57.8 % (45-73); Platelet Count 205 X10*3/uL (160-400); Red Blood Count 5.16 X10*6/uL (4.60-5.80); Red Cell Distribution Width 13.2 % (11.0-16.0); White Blood Count 5.1 X10*3/uL (4.8-10.8)
[2023-01-05 12:34] LABS: Appearance Urine Clear; Color Urine Yellow; Glucose Urine UA Negative (Negative); Leukocyte Esterase Urine Negative (Negative); Nitrite Urine Negative (Negative); PH 5.5 (5.0-9.0); Specific Gravity - Urine 1.025 (1.005-1.025); Urine Blood Negative (Negative); Urine Ketones Negative (Negative); Urine Protein Negative (Neg-Trace)
[2023-01-05 12:40] LABS: Bacteria Urine None Seen (None Seen); Hyaline Casts Urine 0-2 /LPF (0-2); RBC Urine 0-2 /HPF (0-2); Squamous Epithelial Cell Urine 0-2 /HPF (0-2); WBC Urine 0-5 /HPF (0-5)
[2023-01-05 13:23] LABS: Estimated Average Glucose 108 mg/dL; Hemoglobin A1c % 5.4 %
[2023-01-05 13:38] LABS: Alanine Aminotransferase 25 U/L (0-40); Albumin Level 4.4 g/dL (3.5-5.0); Alkaline Phosphatase 95 U/L (39-117); Anion Gap 16 (12-20); Aspartate Amino Transferase 30 U/L (5-37); Bilirubin Total 1.4 mg/dL (0.0-1.0); Blood Urea Nitrogen 21 mg/dL (9-16); Calcium 9.4 mg/dL (8.4-10.2); Carbon Dioxide 27 mmol/L (22-29); Chloride 105 mmol/L (96-108); Cholesterol 188 mg/dL; Estimated Glomerular Filt Rate > 60; Glucose Fasting 87 mg/dL (60-99); HDL Cholesterol 48 mg/dL; LDL Cholesterol Calculated 111 mg/dl; Potassium 4.1 mmol/L (3.3-5.1); Sodium 144 mmol/L (135-145); Total Protein 7.5 g/dL (6.5-8.0); Triglycerides 145 mg/dL
[2023-01-05 13:57] LABS: PSA,Total (Free>4and<10) 1.66 ng/mL (0.00-4.00)
== END 2023-01-05 11:50 | disposition home or self-care (01) ==
LOC: HO.LNP 11:49
PROVIDERS: Visit Provider Internal Medicine
DX: Z12.5 Encounter for screening for malignant neoplasm of prostate (principal); E78.00 Pure hypercholesterolemia, unspecified; R73.03 Prediabetes
CPT/HCPCS: 80053; 80061; 81001; 82043; 83036; 84153; 85025

== ENCOUNTER 2023-02-02 09:29 | Outpatient (REF) | payer MEDICARE, SELFPAY ==
[2023-02-02 11:06] LABS: Alanine Aminotransferase 26 U/L (0-40); Albumin Level 4.2 g/dL (3.5-5.0); Alkaline Phosphatase 99 U/L (39-117); Aspartate Amino Transferase 30 U/L (5-37); Bilirubin Direct 0.3 mg/dL (0.0-0.5); Bilirubin Total 1.3 mg/dL (0.0-1.0); Iron 136 mcg/dL (45-160); Percent Iron Saturation 46 % (15-50); Total Iron Binding Capacity 294 mcg/dL (228-428); Total Protein 7.3 g/dL (6.5-8.0); Unsaturated Iron Binding 158 ug/dL
[2023-02-02 11:20] LABS: Ferritin 358 ng/mL (20-250)
[2023-02-04 14:38] LABS: Alpha Fetoprotein 4.5 ng/mL (<6.1)
== END 2023-02-02 09:30 | disposition home or self-care (01) ==
LOC: HO.LAB 09:29
PROVIDERS: PCP Internal Medicine; Visit Provider Internal Medicine
DX: K76.0 Fatty (change of) liver, not elsewhere classified (principal); K74.69 Other cirrhosis of liver
CPT/HCPCS: 36415; 80076; 82105; 82728; 83540

== ENCOUNTER 2023-05-07 04:52 | Emergency (ER) | payer MEDICARE, SELFPAY ==
--- NOTE | ~2023-05-07 | XR_ITS ---
EXAMINATION: XR KNEE, LEFT CLINICAL INFORMATION: Fall COMPARISON: 09/23/2018 TECHNIQUE: Four views of the left knee. FINDINGS: No fracture or subluxation. Moderate medial compartment joint space narrowing. Enthesophyte formation of the patella. Small tricompartmental marginal osteophytes. Small joint effusion. XR/XR knee LT 4V IMPRESSION: No fracture or malalignment. Small joint effusion. Mild to moderate tricompartmental degenerative changes.
[2023-05-07 05:02] VITALS: BP 149/91; PULSE 78; RESP 18; TEMP 37; O2SAT 96; BMI 29.4
--- NOTE | 2023-05-07 05:15 | ED_ITS ---
HPI - Anxiety General Chief Complaint: Anxiety Stated Complaint: Anxiety Time Seen by Provider: 05/07/23 05:15 Source: patient Mode of arrival: ambulatory Limitations: no limitations History of Present Illness HPI narrative: Patient history of anxiety woke up from sleep feeling very anxious patient does get similar prior anxiety attacks occasionally, does have a therapist and take medication also apparently patient fell 2 weeks ago and complaining of pain in the left knee does have history of arthritis patient diagnosed with COVID 2 days ago patient is symptomatic and tested at home which was negative Related Data Home Medications Medication Instructions Recorded Confirmed atorvastatin 40 mg tablet 1 tab PO DAILY 10/23/22 10/23/22 citalopram 20 mg tablet 1 tab PO DAILY 10/23/22 10/23/22 dicyclomine 10 mg capsule 10 cap PO DAILY 10/23/22 10/23/22 ibuprofen 800 mg tablet 1 tab PO TID 10/23/22 10/23/22 pantoprazole 40 mg tablet,delayed 1 tab PO DAILY 10/23/22 10/23/22 release Previous Rx's Medication Instructions Recorded alprazolam 0.5 mg tablet (Xanax) 0.5 mg PO BEDTIME PRN anxiety #7 05/07/23 tabs Allergies Allergy/AdvReac Type Severity Reaction Status Date / Time propofol Allergy Intermediate Unknown Verified 05/07/23 05:05 Review of Systems Review of Systems: Yes all other systems are reviewed and are negative [facility] Past Medical History Medical History GERD (gastroesophageal reflux disease) Hyperlipidemia IBS (irritable bowel syndrome) Social History Social History Alcohol intake: current Alcohol intake frequency: holidays/special occasions only Alcohol type: hard liquor Smoked in Last 30 Days: No Advance Directives: No Advance Directives Information Provided: Yes Physical Exam Vital Signs: Vital Signs: Last Vital Signs Temp 97.9 F 05/07/23 06:25 Pulse 73 05/07/23 06:25 Resp 16 05/07/23 06:25 BP 136/72 05/07/23 06:25 Pulse Ox 98 05/07/23 06:25 O2 Del Method Room Air 05/07/23 06:25 BMI result Body Mass Index 29.4 Appearance: Alert. Oriented X3. No acute distress. Anxious Eyes: PERRLA, No Nystagmus ENT: Pharynx normal. Oral Mucosa moist Neck: Normal inspection. Neck supple. CVS: Normal heart rate and rhythm. Pulses normal. Respiratory: No respiratory distress. Equal air entry bilateral, no wheezing/rales/rhonchi Abdomen: Soft and nontender. Bowel sounds are present, Skin: Skin warm and dry. Normal skin color. Normal skin turgor. Extremities: No lower extremity edema. No calf tenderness left knee diffuse te nderness no effusion limited range of movement because of pain Neuro: Oriented X 3. No motor deficit. No sensory deficit.No cerebellar signs , cranial nerves II-XII intact Medications Administered Discontinued Medications Generic Name Dose Route Start Last Admin Trade Name Freq PRN Reason Stop Dose Admin Alprazolam 0.5 mg 05/07/23 05:21 05/07/23 05:40 Alprazolam 0.5 Mg Tablet PO 05/07/23 05:22 0.5 mg ONCE ONE Administration Medical Decision Making Medical Decision Making [facility] Narrative: Patient will anxiety with severe arthritis discharge patient home on alprazolam to take for severe anxiety patient also has any contact with his was COVID positive but patient asymptomatic and is COVID positive Lab Data [facility] Lab Attestation statement: I reviewed the patient's lab results. Labs: Lab Results 05/07/23 Range/Units 05:45 COVID-19 (RITU) Positive A (Negative) COVID-19 Clin Com See Note Radiology Impression Discussion of test interpretation with radiology: I have reviewed the radiologist's reading. Radiologist Impression: XR/XR knee LT 4V IMPRESSION: No fracture or malalignment. Small joint effusion. Mild to moderate tricompartmental degenerative changes. Discharge Plan Discharge Clinical Impression: Acute anxiety, COVID-19, Arthritis of knee, left Patient Disposition: Home, Self-Care Instructions: Osteoarthritis (ED), Anxiety (ED), COVID-19 (Coronavirus Disease 2019) (ED) Additional Instructions: Take medication for anxiety as prescribed as needed Follow-up with PCP Report to ER if any symptoms from COVID like shortness of breath or increased cough Apply Dinesh wrap to left knee and take ibuprofen for pain Social distancing as advised Prescriptions: New alprazolam [Xanax] 0.5 mg tablet 0.5 mg PO BEDTIME PRN (Reason: anxiety) Qty: 7 0RF No Action atorvastatin 40 mg tablet 1 tab PO DAILY ibuprofen 800 mg tablet 1 tab PO TID citalopram 20 mg tablet 1 tab PO DAILY pantoprazole 40 mg tablet,delayed release (DR/EC) 1 tab PO DAILY dicyclomine 10 mg capsule 10 cap PO DAILY
--- NOTE | 2023-05-07 05:19 | PC.NURSE ---
Pt came to ED from home with complaint of anxiety attack, patient has history of similar anxiety attacks. He reports he woke up from his sleep feeling anxious and SOB. He denies any chest pain. VSS. Patient reports he fell last week and would like to have X-Ray of left knee to be done d/t knee pain after the fall with no improvement.
[2023-05-07] MEDS: ALPRAZolam 0.5 MG TABLET PO (05:40)
[2023-05-07 06:03] LABS: COVID-19 Test Positive (Negative); IDNOW Serial# 6674DD1D
[2023-05-07 06:25] VITALS: BP 136/72; PULSE 73; RESP 16; TEMP 36.6; O2SAT 98
== END 2023-05-07 06:41 | disposition home or self-care (01) ==
PROVIDERS: Emergency Provider Internal Medicine
DX: U07.1 COVID-19 (principal); F41.9 Anxiety disorder, unspecified; M17.12 Unilateral primary osteoarthritis, left knee; E78.5 Hyperlipidemia, unspecified; Z79.899 Other long term (current) drug therapy
CPT/HCPCS: 73564; 87635; 99283; 99284

== ENCOUNTER 2023-05-22 07:47 | Outpatient (REF) | payer MEDICARE, SELFPAY ==
--- NOTE | ~2023-05-22 | MR_ITS ---
EXAMINATION: MR FEMUR WITHOUT CONTRAST, LEFT CLINICAL INFORMATION: Left leg pain and weakness following an injury 1 month ago. Evaluate for a hamstring injury. COMPARISON: Most recent left knee radiographs dated 05/07/2023. TECHNIQUE: Multisequence MR imaging of the left femur was obtained without contrast on a high-field strength scanner. FINDINGS: BONE: No marrow edema or evidence of acute osseous injury. No stress reaction, fracture, or avascular necrosis. No concerning lytic or blastic osseous lesion. MUSCLES/TENDONS: Minimally increased T2 signal within the proximal hamstring insertion, consistent with minimal tendinosis. No measurable tear or tendon retraction. No evidence of acute muscle or tendon injury. SOFT TISSUES: Partially visualized, small left knee joint effusion. No abnormal soft tissue mass or fluid collection. The visualized intrapelvic structures are grossly unremarkable. MR/MR femur LT wo con IMPRESSION: 1. Minimal proximal hamstring tendinosis without a measurable tear or tendon retraction. 2. No acute osseous abnormality. No stress reaction, fracture, or avascular necrosis. 3. Partially visualized, small left knee joint effusion.
== END 2023-05-22 07:48 | disposition home or self-care (01) ==
LOC: HO.MRI 07:47
PROVIDERS: PCP Internal Medicine; Visit Provider Internal Medicine
DX: M79.662 Pain in left lower leg (principal); S76.302D Unspecified injury of muscle, fascia and tendon of the posterior muscle group at thigh level, left thigh, subsequent encounter; X58.XXXD Exposure to other specified factors, subsequent encounter; Y93.9 Activity, unspecified; Y92.9 Unspecified place or not applicable; Y99.9 Unspecified external cause status
CPT/HCPCS: 73718

== ENCOUNTER 2023-06-02 08:59 | Outpatient (REF) | payer MEDICARE, SELFPAY ==
--- NOTE | ~2023-06-02 | US_ITS ---
EXAMINATION: US ABDOMEN LIMITED CLINICAL INFORMATION: Elevated LFTs. COMPARISON: Ultrasound abdomen complete 12/02/2022 and 09/04/2021. CT abdomen and pelvis 01/14/2022. TECHNIQUE: Real-time imaging of the right upper quadrant abdominal viscera. FINDINGS: PANCREAS: Largely obscured by overlapping bowel gas. LIVER: Limited evaluation due to body habitus, in particular of the left lobe. There is mild hepatomegaly, with a longitudinal span of 17.5 cm. The liver contour is normal. There is diffuse increased liver parenchymal echogenicity. No focal hepatic lesion. There is no intrahepatic biliary duct dilatation seen. GALLBLADDER: 4 mm and 3 mm nonmobile gallbladder polyps are incidentally noted. The gallbladder is physiologically distended without evidence of stones, sludge, wall thickening or pericholecystic fluid. COMMON BILE DUCT: Normal in caliber measuring 0.4 cm in diameter. RIGHT KIDNEY: At the interpolar aspect, a 5.1 cm benign, simple cyst is seen, for which no imaging follow-up is recommended. No hydronephrosis or renal calculi. The kidney measures 11.5 cm in maximum dimension. FREE FLUID: None. US/US abdomen limited IMPRESSION: 1. There is mild hepatomegaly. 2. There is generalized increase in hepatic echotexture, consistent with fatty infiltration or hepatocellular disease. Please correlate clinically. No focal hepatic mass or intrahepatic biliary dilatation is seen. 3. Technically limited ultrasound examination of the liver and pancreas.
[2023-06-02 10:53] LABS: Alanine Aminotransferase 26 U/L (0-40); Albumin Level 4.4 g/dL (3.5-5.0); Alkaline Phosphatase 73 U/L (39-117); Aspartate Amino Transferase 38 U/L (5-37); Bilirubin Direct 0.4 mg/dL (0.0-0.5); Bilirubin Total 1.1 mg/dL (0.0-1.0); Iron 179 mcg/dL (45-160); Percent Iron Saturation 54 % (15-50); Total Iron Binding Capacity 329 mcg/dL (228-428); Total Protein 7.9 g/dL (6.5-8.0); Unsaturated Iron Binding 150 ug/dL
[2023-06-02 11:11] LABS: Ferritin 685 ng/mL (20-250)
== END 2023-06-02 09:00 | disposition home or self-care (01) ==
LOC: HO.US 08:59
PROVIDERS: Absent Provider Internal Medicine; PCP Internal Medicine; Visit Provider Internal Medicine
DX: K76.0 Fatty (change of) liver, not elsewhere classified (principal); R94.5 Abnormal results of liver function studies
CPT/HCPCS: 36415; 76705; 80076; 82728; 83540

== ENCOUNTER 2023-07-08 11:23 | Outpatient (REF) | payer MEDICARE, SELFPAY ==
[2023-07-08 13:41] LABS: Cholesterol 210 mg/dL (<200); HDL Cholesterol 59 mg/dL (>40); LDL Cholesterol Calculated 125 mg/dL (<100); Triglycerides 130 mg/dL (<150)
[2023-07-08 13:52] LABS: Alanine Aminotransferase 25 U/L (0-40); Albumin Level 4.3 g/dL (3.5-5.0); Alkaline Phosphatase 78 U/L (39-117); Aspartate Amino Transferase 28 U/L (5-37); Bilirubin Direct 0.3 mg/dL (0.0-0.5); Bilirubin Total 0.9 mg/dL (0.0-1.0); Glucose Fasting 104 mg/dL (60-99); Total Protein 8.1 g/dL (6.5-8.0)
[2023-07-08 13:55] LABS: Reflex LDLD? No
== END 2023-07-08 11:24 | disposition home or self-care (01) ==
LOC: HO.LNP 11:23
PROVIDERS: Visit Provider Internal Medicine
DX: R73.09 Other abnormal glucose (principal); E78.00 Pure hypercholesterolemia, unspecified
CPT/HCPCS: 80061; 80076; 82947

== ENCOUNTER 2023-08-04 07:25 | Day surgery (SDC) | payer MEDICARE, SELFPAY ==
--- NOTE | 2023-08-03 08:45 | HO.ANESPROP2 ---
Documented by User: Linette Reno NP 08/03/23 13:50 HPI - Anesthesia Eval Consult details Narrative: 72yo M for ?Upper Endoscopy Pt states many years ago, red face prior to hand surgery. Resolved with benadryl. ? preop abx, ? propofol PMFSH Active Problems Active Problems: All Active Problems (Updated 05/08/23 @ 00:02 by Saji Montoya) COVID-19 (Acute) Past Medical History Medical History Anxiety GERD (gastroesophageal reflux disease) IBS (irritable bowel syndrome) Hyperlipidemia Surgical History Surgical History Hx of hand surgery History of surgery on wrist Hx of hand surgery S/P right rotator cuff repair H/O colonoscopy History of Problems with Anesthesia: Yes (Pt states many years ago, red face prior to hand surgery. Resolved with benadryl.) Social History Social History Alcohol intake: current Alcohol intake frequency: holidays/special occasions only Alcohol type: hard liquor Patient Tobacco Use Status: Never used Tobacco Meds Allergies Allergy/AdvReac Type Severity Reaction Status Date / Time fentanyl Allergy Rash Verified 08/04/23 08:16 Home Medications Medication Instructions Recorded Confirmed Last Taken Type atorvastatin 40 mg tablet 1 tab PO DAILY 10/23/22 10/23/22 Unknown History citalopram 20 mg tablet 1 tab PO DAILY 10/23/22 10/23/22 Unknown History dicyclomine 10 mg capsule 10 cap PO DAILY 10/23/22 10/23/22 Unknown History ibuprofen 800 mg tablet 1 tab PO TID 10/23/22 10/23/22 Unknown History pantoprazole 40 mg tablet,delayed 1 tab PO DAILY 10/23/22 10/23/22 Unknown History release ursodiol 500 mg PO BID 08/04/23 08/04/23 Unknown History Exam Exam Date and Time: August 03, 2023 0845 Assessment and Plan Assessment Anesthesia Assessment: Chart Reviewed Final Anesthetic Review History of Problems with Anesthesia: Yes (Pt states many years ago, red face prior to hand surgery. Resolved with benadryl.) Documented by User: Katie Berg MD 08/04/23 09:15 HPI - Anesthesia Eval Consult details Narrative: 72yo M for ?Upper Endoscopy Pt states many years ago, blotchiness of face and arms following hand surgery. Resolved with benadryl. ? preop abx ? fentanyl PMFSH Active Problems Active Problems: All Active Problems (Updated 05/08/23 @ 00:02 by Background Lindsay) H/o COVID-2019 and Summer 2022 Past Medical History Medical History Anxiety GERD (gastroesophageal reflux disease) IBS (irritable bowel syndrome) Hyperlipidemia Family History Family history of problems with anesthesia: No Surgical History Surgical History Hx of hand surgery History of surgery on wrist Hx of hand surgery S/P right rotator cuff repair H/O colonoscopy History of Problems with Anesthesia: Yes (Pt states many years ago, red face post hand surgery. Resolved with benadryl.) Social History Social History Alcohol intake: current Alcohol intake frequency: holidays/special occasions only Alcohol type: hard liquor Patient Tobacco Use Status: Never used Tobacco Meds Allergies Allergy/AdvReac Type Severity Reaction Status Date / Time fentanyl Allergy Rash Verified 08/04/23 08:16 Home Medications Medication Instructions Recorded Confirmed Last Taken Type atorvastatin 40 mg tablet 1 tab PO DAILY 10/23/22 10/23/22 Unknown History citalopram 20 mg tablet 1 tab PO DAILY 10/23/22 10/23/22 Unknown History dicyclomine 10 mg capsule 10 cap PO DAILY 10/23/22 10/23/22 Unknown History ibuprofen 800 mg tablet 1 tab PO TID 10/23/22 10/23/22 Unknown History pantoprazole 40 mg tablet,delayed 1 tab PO DAILY 10/23/22 10/23/22 Unknown History release ursodiol 500 mg PO BID 08/04/23 08/04/23 Unknown History Exam Height,Weight and Vital Signs: Height 5 ft 10 in Weight 93.894 kg Vital Signs Temp Pulse Resp BP Pulse Ox O2 Del Method 08/04/23 08:10 97.3 F 58 18 150/87 H 96 Room Air Airway Mallampati Class: III TM Dist: >3cm Neck ROM: Full Loose/Missing/Broken Teeth: No (Implants, caps intact.Denies broken, loose, missing teeth) Heart: RRR Lungs: CTAB Assessment and Plan Assessment Anesthesia Assessment: Anesthesia Plan Discussed Final Anesthetic Review Family History of Problems with Anesthesia: No History of Problems with Anesthesia: Yes (Pt states many years ago, red face post hand surgery. Resolved with benadryl.) NPO: Yes ASA Class: II Final Preanesthetic Review: No Changes in Pt Med Stat, Meds/Allgs Chart Reviewed, Consent Obtained/Reviewed and Anes Risks/Benef Reviewed Patient Risk: Low Procedure Risk: Low Assessment/Block/Sedation in SS: Assess/Block/Sedation-SS Anesthetic Plan Anesthetic Plan: MAC: Disposition: Standard PACU
[2023-08-04 08:10] VITALS: BP 150/87; PULSE 58; RESP 18; TEMP 36.3; O2SAT 96; BMI 29.7
[2023-08-04] MEDS: Lactated Ringers 1,000 ML 100 ML IVCONT (08:19)
[2023-08-04 09:02] VITALS: BP 105/69; PULSE 58; RESP 23; TEMP 36.2; O2SAT 96
--- NOTE | 2023-08-04 09:02 | PM.OP ---
Brief Operative Note Date of Service: 08/04/23 Pre-op diagnosis: Cirrhosis Post-op diagnosis: other (Gastritis, Hiatal hernia, Grade 1 Esophageal varices) Procedure: EGD with biopsies Surgeon: Josh Fontanez MD Anesthesia: MAC Was an Extrusion Die Repairer used for this Procedure?: No Estimated blood loss (mL): 2.0 Pathology: other (A. Gastric antrum) Condition: stable Disposition: PACU
[2023-08-04 09:18] VITALS: BP 120/77; PULSE 54; RESP 20; TEMP 36.2; O2SAT 96
--- NOTE | 2023-08-04 09:19 | OP_ITS ---
DATE OF SERVICE: 08/04/2023 SURGEON: Josh Fontanez MD INDICATIONS: The patient presents for evaluation of underlying history of cirrhosis. Full consent has been obtained from him for this, including risks of bleeding and perforation. PREOPERATIVE DIAGNOSIS: Cirrhosis. POSTOPERATIVE DIAGNOSIS: PROCEDURE PERFORMED: Esophagogastroduodenoscopy with biopsies. ESTIMATED BLOOD LOSS: COMPLICATIONS: ANESTHESIA: Monitored anesthesia care. ASSISTANTS: SPECIMENS: POSTOPERATIVE DIAGNOSES: Cirrhosis, mild gastritis, hiatal hernia, minimal grade 1 esophageal varices. DESCRIPTION OF PROCEDURE: The patient was placed in the left lateral decubitus position. The Olympus video gastroscope was passed in the posterior oropharynx and upper esophagus under direct vision. The scope was passed slowly to the distal esophagus. The gastroesophageal junction appeared at 38 cm. With insufflation of air, there appeared to be very minimal grade 1 varices that just about disappeared completely. There was no evidence of any esophagitis nor Pompa's mucosa. The scope entered the stomach. There was a small hiatal hernia. The scope was advanced to the pylorus and the duodenum was cannulated to the descending portion. The duodenum including the bulb appeared normal without mass or ulceration. The scope was withdrawn back to the stomach. The gastric antrum and body had some mild areas of erythema, but no erosions or ulceration. There was good peristalsis. Biopsies were obtained from the gastric antrum. The scope was retroflexed visualizing the proximal stomach carefully, which appeared normal, without any sign of varices, mass, ulceration, nor gastropathy. The scope was straightened and withdrawn back to the esophagus. Again, with insufflation of air, I did not appreciate any significant varices other than the grade 1 distal esophageal varices that almost completely disappeared with insufflation of air. The scope was withdrawn through the remainder of the esophagus, which appeared normal. The scope was withdrawn from the patient. He tolerated the procedure well and was returned to the recovery area in stable condition. IMPRESSION: 1. Mild antral gastritis. 2. Hiatal hernia. 3. Minimal grade 1 distal esophageal varices. PLAN: The results of the biopsy will be checked. He will continue his pantoprazole as well as his Ursodiol. He will be seen in the Spring for a followup visit, at which time, we shall schedule him for a followup liver ultrasound. He was advised to try to avoid all aspirin and NSAIDs long-term. This has been discussed with his . MD REBECCA De Leon/NGUYỄN / [id number] SASCHA
== END 2023-08-04 09:50 | disposition home or self-care (01) ==
PROVIDERS: PCP Internal Medicine; Visit Provider Internal Medicine
PROC: 0DJ08ZZ Inspection of Upper Intestinal Tract, Via Natural or Artificial Opening Endoscopic (ICD-10-PCS; CPT 43235; principal; 2023-08-04 08:30)
DX: K74.69 Other cirrhosis of liver (principal); K76.0 Fatty (change of) liver, not elsewhere classified; R79.89 Other specified abnormal findings of blood chemistry; I85.00 Esophageal varices without bleeding; K29.50 Unspecified chronic gastritis without bleeding; K58.9 Irritable bowel syndrome, unspecified; K44.9 Diaphragmatic hernia without obstruction or gangrene; K21.9 Gastro-esophageal reflux disease without esophagitis; E78.00 Pure hypercholesterolemia, unspecified; F41.9 Anxiety disorder, unspecified; Z79.899 Other long term (current) drug therapy
CPT/HCPCS: 43239; 88305; 88342; J2704

== ENCOUNTER 2023-09-28 09:29 | Outpatient (REF) | payer MEDICARE, SELFPAY ==
[2023-09-28 12:36] LABS: Alanine Aminotransferase 20 U/L (0-40); Albumin Level 4.2 g/dL (3.5-5.0); Alkaline Phosphatase 80 U/L (39-117); Aspartate Amino Transferase 23 U/L (5-37); Bilirubin Direct 0.3 mg/dL (0.0-0.5); Bilirubin Total 1.1 mg/dL (0.0-1.0); Iron 190 mcg/dL (45-160); Percent Iron Saturation 59 % (15-50); Total Iron Binding Capacity 320 mcg/dL (228-428); Total Protein 7.7 g/dL (6.5-8.0); Unsaturated Iron Binding 130 ug/dL
[2023-09-28 12:39] LABS: Ferritin 236 ng/mL (20-250)
== END 2023-09-28 09:30 | disposition home or self-care (01) ==
LOC: HO.LAB 09:29
PROVIDERS: Visit Provider Internal Medicine
DX: R74.8 Abnormal levels of other serum enzymes (principal); K76.0 Fatty (change of) liver, not elsewhere classified; E83.19 Other disorders of iron metabolism
CPT/HCPCS: 36415; 80076; 82728; 83540

== ENCOUNTER 2024-01-18 10:53 | Outpatient (REF) | payer MEDICARE, SELFPAY ==
[2024-01-18 10:57] LABS: MANUAL DIFF FLAG NO
[2024-01-18 11:33] LABS: Basophils Absolute Auto 0.1 X10*3/uL (0.0-0.2); Basophils Percent Auto 1.2 % (0-2); Eosinophils Absolute Auto 0.1 X10*3/uL (0.0-0.4); Eosinophils Percent Auto 2.7 % (0-4); Hematocrit 49.5 % (42.0-52.0); Hemoglobin 16.8 g/dl (14.0-18.0); Imm Gran Abs Auto 0.02 X10*3/uL (0.00-0.03); Imm Gran Pct Auto 0.4 % (0.0-0.4); Lymphocytes Absolute Auto 1.2 X10*3/uL (1.2-4.9); Lymphocytes Percent Auto 24.1 % (20-40); Mean Corpuscular HGB Conc 33.9 g/dl (31.0-36.0); Mean Corpuscular Hemoglobin 31.2 pg (27.0-33.0); Mean Platelet Volume 11.1 fL (9.4-12.4); Monocytes Absolute Auto 0.6 X10*3/uL (0.1-1.2); Monocytes Percent Auto 11.3 % (2-11); Neutrophils Absolute Auto 3.1 x10*3/uL (2.0-8.3); Neutrophils Percent Auto 60.3 % (45-73); Platelet Count 222 X10*3/uL (160-400); Red Blood Count 5.38 X10*6/uL (4.60-5.80); Red Cell Distribution Width 12.9 % (11.0-16.0); White Blood Count 5.1 X10*3/uL (4.8-10.8)
[2024-01-18 11:49] LABS: Appearance Urine Clear; Color Urine Yellow; Glucose Urine UA Negative (Negative); Leukocyte Esterase Urine Negative (Negative); Nitrite Urine Negative (Negative); PH 5.5 (5.0-9.0); Urine Blood Negative (Negative); Urine Ketones Negative (Negative); Urine Protein Negative (Neg-Trace)
[2024-01-18 11:53] LABS: Alanine Aminotransferase 25 U/L (0-40); Albumin Level 4.4 g/dL (3.5-5.0); Alkaline Phosphatase 104 U/L (39-117); Anion Gap 15 (12-20); Aspartate Amino Transferase 31 U/L (5-37); Bilirubin Direct 0.4 mg/dL (0.0-0.5); Bilirubin Total 1.3 mg/dL (0.0-1.0); Blood Urea Nitrogen 20 mg/dL (9-16); Calcium 9.8 mg/dL (8.4-10.2); Carbon Dioxide 24 mmol/L (22-29); Chloride 104 mmol/L (96-108); Cholesterol 207 mg/dL (<200); Estimated Glomerular Filt Rate > 60; Glucose Fasting 109 mg/dL (60-99); HDL Cholesterol 54 mg/dL (>40); LDL Cholesterol Calculated 123 mg/dL (<100); Sodium 139 mmol/L (135-145); Total Protein 8.1 g/dL (6.5-8.0); Triglycerides 153 mg/dL (<150)
[2024-01-18 11:57] LABS: Bacteria Urine None Seen (None Seen); Hyaline Casts Urine 0-2 /LPF (0-2); RBC Urine 0-2 /HPF (0-2); Squamous Epithelial Cell Urine 0-2 /HPF (0-2); WBC Urine 0-5 /HPF (0-5)
[2024-01-18 12:45] LABS: Creatinine Urine 202.82 mg/dL; Microalbum/Creatinine Ratio Ur 3.9 ug/mg cr (<30)
[2024-01-18 12:52] LABS: PSA,Total (Free>4and<10) 1.87 ng/mL (0.00-4.00)
[2024-01-18 15:40] LABS: Estimated Average Glucose 114 mg/dL; Hemoglobin A1c % 5.6 % (<6.0)
== END 2024-01-18 10:54 | disposition home or self-care (01) ==
LOC: HO.LNP 10:53
PROVIDERS: Visit Provider Internal Medicine
DX: R73.09 Other abnormal glucose (principal); R74.8 Abnormal levels of other serum enzymes; E78.00 Pure hypercholesterolemia, unspecified; R97.20 Elevated prostate specific antigen [PSA]; Z12.5 Encounter for screening for malignant neoplasm of prostate
CPT/HCPCS: 80053; 80061; 80076; 81001; 82043; 82248; 82570; 83036; 84153; 85025

== ENCOUNTER 2024-05-19 09:27 | Outpatient (REF) | payer MEDICARE, SELFPAY ==
--- NOTE | ~2024-05-19 | US_ITS ---
EXAMINATION: US COMPLETE ABDOMEN WITH LIVER ELASTOGRAPHY CLINICAL INFORMATION: Fatty liver with cirrhosis. COMPARISON: Ultrasound abdomen 06/02/2023 TECHNIQUE: Real-time imaging of the abdominal viscera. Noninvasive ultrasound liver fibrosis assessment is performed using Aris ElastPQ point quantification shear wave elastography (pSWE) with a C5-2 MHz transducer. Multiple elastography samples are obtained. FINDINGS: PANCREAS: . The visualized pancreatic head and body are normal in appearance. The remainder of the pancreas is obscured from visualization by the overlying bowel gas. ABDOMINAL AORTA: The middle, and distal aortic segments are normal in caliber. Proximal aorta could not be seen. INFERIOR VENA CAVA: Visualized portions are normal. LIVER: The liver demonstrates normal size and contour but with increased echogenicity. The left lobe was difficult to visualize. No focal lesion or intrahepatic biliary duct dilatation. The right lobe measures 14.0 cm in length. In the prior study, the liver was measured at 17.5 cm. The left lobe measures 11.3 cm in length. Portal flow is towards the liver (hepatopetal). Shear wave liver elastography median stiffness is 1.35 m/s (reference: normal median stiffness is 1.3 m/s or less). IQR/median stiffness to assess sampling precision is 0.10 (reference: good quality data set is IQR/median stiffness of 0.15 or less). GALLBLADDER: Small gallbladder polyp is present, as seen previously. The gallbladder is physiologically distended without evidence of stones, sludge, wall thickening or pericholecystic fluid. COMMON BILE DUCT: Normal in caliber measuring 0.5 cm in diameter. RIGHT KIDNEY: . No hydronephrosis. No renal calculi . The kidney measures 11.3 cm in maximum dimension. A benign 5.2 cm Bosniak class II renal cyst is noted containing a single septation, which requires no additional imaging or follow up. No solid renal masses are seen. LEFT KIDNEY: No hydronephrosis. No renal calculi. The kidney measures 11.0 cm in maximum dimension. 2 benign renal cysts are noted which require no additional imaging or follow-up. One of the cysts is Bosniak class I, whereas the other contains a single septation, Bosniak class II. No solid renal masses are seen. SPLEEN: Normal. The spleen measures 11.9 cm in maximum dimension. FREE FLUID: None. US/US abdomen comp w elastography IMPRESSION: 1. Hepatic steatosis. 2. Gallbladder polyp and benign renal cysts, which need no follow-up. 2. Liver elastography: In the absence of other known clinical signs, measurements rule out compensated advanced chronic liver disease. If there are known clinical signs, further testing may be needed for confirmation. REFERENCE: Society of Radiologists in Ultrasound Liver Stiffness Thresholds (2020): LIVER STIFFNESS THRESHOLDS: *Liver Stiffness equal or less than 1.3 m/s: High probability of being normal. *Liver Stiffness less than 1.7 m/s: In the absence of other known clinical signs, rules out compensated advanced chronic liver disease. *Liver Stiffness 1.7-2.1 m/s: Suggestive of compensated advanced chronic liver disease but need further test for confirmation. *Liver Stiffness over 2.1 m/s: Rules in compensated advanced chronic liver disease. *Liver Stiffness over 2.4 m/s: Suggestive of clinically significant portal hypertension. QUALITY OF DATA SET: *IQR/Median value equal or less than 0.15 implies a quality data set. *IQR/Median value over 0.15 implies a poor quality data set. SIGNIFICANT CHANGE FROM PRIOR EXAM: Significant change if liver stiffness measurement is 10% or greater from prior exam. OTHER CONSIDERATIONS: The stage of liver fibrosis may be overestimated in the setting of acute hepatitis, liver inflammation, elevated liver function tests, hepatic vascular congestion, obstructive cholestasis, non-fasting state, and infiltrative diseases such as amyloidosis and lymphoma. In some patients with NAFLD, the liver stiffness thresholds for compensated advanced chronic liver disease may be lower. In causes other than viral hepatitis and NAFLD, liver stiffness thresholds are not well established. Electronically signed by: Jude Cardona MD 05/22/2024 09:54 PM EDT
[2024-05-19 09:44] LABS: MANUAL DIFF FLAG NO
[2024-05-19 10:52] LABS: Basophils Absolute Auto 0.1 X10*3/uL (0.0-0.2); Basophils Percent Auto 1.2 % (0-2); Eosinophils Absolute Auto 0.1 X10*3/uL (0.0-0.4); Hemoglobin 17.3 g/dl (14.0-18.0); Imm Gran Abs Auto 0.01 X10*3/uL (0.00-0.03); Imm Gran Pct Auto 0.2 % (0.0-0.4); Lymphocytes Percent Auto 19.7 % (20-40); Mean Corpuscular HGB Conc 34.6 g/dl (31.0-36.0); Mean Corpuscular Volume 89.6 fL (80.0-98.0); Mean Platelet Volume 10.4 fL (9.4-12.4); Monocytes Absolute Auto 0.5 X10*3/uL (0.1-1.2); Monocytes Percent Auto 9.2 % (2-11); Neutrophils Absolute Auto 3.5 x10*3/uL (2.0-8.3); Neutrophils Percent Auto 68.7 % (45-73); Platelet Count 202 X10*3/uL (160-400); Red Blood Count 5.58 X10*6/uL (4.60-5.80); White Blood Count 5.1 X10*3/uL (4.8-10.8)
[2024-05-19 10:58] LABS: Prothrombin Time 12.4 SEC (11.1-13.3)
[2024-05-19 11:52] LABS: Alanine Aminotransferase 20 U/L (0-40); Albumin Level 4.4 g/dL (3.5-5.0); Alkaline Phosphatase 85 U/L (39-117); Aspartate Amino Transferase 24 U/L (5-37); Bilirubin Direct 0.3 mg/dL (0.0-0.5); Iron 129 mcg/dL (45-160); Percent Iron Saturation 40 % (15-50); Total Iron Binding Capacity 322 mcg/dL (228-428); Unsaturated Iron Binding 193 ug/dL
[2024-05-19 12:01] LABS: Ferritin 413 ng/mL (20-250)
[2024-05-23 13:13] LABS: Alpha Fetoprotein 3.8 ng/mL (<6.1)
[2024-05-27 17:24] LABS: FIB-ALT 15 U/L (9-46); FIB-Alpha-2-Macroglobulin 479 mg/dL (106-279); FIB-Apolipoprotein A1 193 mg/dL (94-176); FIB-GGT 33 U/L (3-70); FIB-Haptoglobin 152 mg/dL (43-212); FIB-Total Bilirubin 0.6 mg/dL (0.2-1.2); Liver Fibrosis Score 0.66; Liver Fibrosis Stage F3; Nec Inflam Act Grade A0; Nec Inflam Act Score 0.08
== END 2024-05-19 09:28 | disposition home or self-care (01) ==
LOC: HO.US 09:27
PROVIDERS: PCP Internal Medicine; Visit Provider Internal Medicine
DX: K76.0 Fatty (change of) liver, not elsewhere classified (principal); K74.60 Unspecified cirrhosis of liver; E83.19 Other disorders of iron metabolism
CPT/HCPCS: 36415; 76700; 76981; 80076; 81596; 82105; 82728; 83540; 85025; 85610

== ENCOUNTER 2025-01-22 11:19 | Outpatient (REF) | payer MEDICARE, SELFPAY ==
[2025-01-22 11:23] LABS: MANUAL DIFF FLAG NO
[2025-01-22 12:30] LABS: Basophils Absolute Auto 0.1 X10*3/uL (0.0-0.2); Basophils Percent Auto 1.1 % (0-2); Eosinophils Absolute Auto 0.1 X10*3/uL (0.0-0.4); Eosinophils Percent Auto 2.3 % (0-4); Hematocrit 48.5 % (42.0-52.0); Hemoglobin 16.4 g/dl (14.0-18.0); Imm Gran Abs Auto 0.02 X10*3/uL (0.00-0.03); Imm Gran Pct Auto 0.4 % (0.0-0.4); Lymphocytes Absolute Auto 1.2 X10*3/uL (1.2-4.9); Lymphocytes Percent Auto 22.2 % (20-40); Mean Corpuscular HGB Conc 33.8 g/dl (31.0-36.0); Mean Corpuscular Hemoglobin 30.3 pg (27.0-33.0); Mean Corpuscular Volume 89.6 fL (80.0-98.0); Mean Platelet Volume 11.3 fL (9.4-12.4); Monocytes Absolute Auto 0.6 X10*3/uL (0.1-1.2); Monocytes Percent Auto 11.7 % (2-11); Neutrophils Absolute Auto 3.3 x10*3/uL (2.0-8.3); Neutrophils Percent Auto 62.3 % (45-73); Platelet Count 223 X10*3/uL (160-400); Red Blood Count 5.41 X10*6/uL (4.60-5.80); Red Cell Distribution Width 13.4 % (11.0-16.0); White Blood Count 5.2 X10*3/uL (4.8-10.8)
[2025-01-22 12:40] LABS: Appearance Urine Clear; Color Urine Dark Yellow; Glucose Urine UA Negative (Negative); Leukocyte Esterase Urine Negative (Negative); Nitrite Urine Negative (Negative); PH 5.5 (5.0-9.0); Urine Blood Negative (Negative); Urine Ketones Negative (Negative); Urine Protein Negative (Neg-Trace)
[2025-01-22 12:47] LABS: Bacteria Urine None Seen (None Seen); Hyaline Casts Urine 0-2 /LPF (0-2); RBC Urine 0-2 /HPF (0-2); Squamous Epithelial Cell Urine 0-2 /HPF (0-2); WBC Urine 0-5 /HPF (0-5)
[2025-01-22 13:03] LABS: Estimated Average Glucose 120 mg/dL; Hemoglobin A1C 164.7046 umol/L; Hemoglobin A1c % 5.8 % (<6.0); PSA,Total (Free>4and<10) 1.69 ng/mL (0.00-4.00); Total Hemoglobin (HGBA1C) 4180.7166 umol/L
[2025-01-22 13:05] LABS: Microalbum/Creatinine Ratio Ur 7.3 ug/mg cr (<30)
--- OUTSIDE RECORDS SUMMARY | 2025-01-22 13:08 | XMS_ITS ---
Author Organization [facility] Address [address] [place] [address] Drive [address] [place] [address] Care Team Providers Care Warehouse Engineer Name Role Phone Leia ESPANA, Bruce Primary Care Provider Josh Arias [phone] REASON FOR VISIT refill ursodiol/ all out today Encounters Encounter Location Date Provider Diagnosis [facility] [address] [place] [address] [address] [place] [address] 12/12/2024 Josh Fontanez Plan Of Treatment Next Appt Details Provider Name:Josh Fontanez , 06/12/2025 09:10:00 AM, [address] [place] [address], [address], [place], [address], Progress Notes * BAKARI MARISCAL LDOB:1950 (74 yo M)Acc No.[id number]:12/12/2024 Patient:?BAKARI MARISCAL :1950???Age:74 Y???Sex:Male Address:[address] [place] [id number] * true * Date:? Generated for Printi ng/Faxing/eTransmitting on:?01/22/2025 01:07 PM EDT
--- OUTSIDE RECORDS SUMMARY | 2025-01-22 13:08 | XMS_ITS | Patient Health Record ---
Author Organization [facility] Address [address] [place] [phone] Care Team Providers Care Locate Technician Name Role Phone Bruce Dupree MD Primary Care Provider Josh Arias Unavailable [phone] Allergies Allergen (clinical drug ingredient) Drug/Non Drug Allergy documented on EMR Reaction Allergy Type Onset Date Status enviromental (uncoded) Unknown Allergy Active Results Component Value Reference Range Notes Complete Blood Count Auto Di ff Reviewed date:05/19/2024 04:35:07 PM Interpretation: Performing Lab:[facility], [address] [place] [phone] Notes/Report: White Blood Count 5.1 4.8-10.8 X10*3/uL Red Blood Count 5.58 4.60-5.80 X10*6/uL Hemoglobin 17.3 14.0-18.0 g/dl Hematocrit 50.0 42.0-52.0 % Mean Corpuscular Volume 89.6 80.0-98.0 fL Mean Corpuscular Hemoglobin 31.0 27.0-33.0 pg Mean Corpuscular HGB Conc 34.6 31.0-36.0 g/dl Red Cell Distribution Width 13.0 11.0-16.0 % Platelet Count 202 160-400 X10*3/uL Mean Platelet Volume 10.4 9.4-12.4 fL Neutrophils Percent Auto 68.7 45-73 % Imm Gran Pct Auto 0.2 0.0-0.4 % Lymphocytes Percent Auto 19.7 20-40 % Monocytes Percent Auto 9.2 2-11 % Eosinophils Percent Auto 1.0 0-4 % Basophils Percent Auto 1.2 0-2 % NRBC Pct Auto 0.0 0.0-0.2 /100WBC Neutrophils Absolute Auto 3.5 2.0-8.3 x10*3/uL Imm Gran Abs Auto 0.01 0.00-0.03 X10*3/uL Lymphocytes Absolute Auto 1.0 1.2-4.9 X10*3/uL Monocytes Absolute Auto 0.5 0.1-1.2 X10*3/uL Eosinophils Absolute Auto 0.1 0.0-0.4 X10*3/uL Basophils Absolute Auto 0.1 0.0-0.2 X10*3/uL NRBC Abs Auto 0.000 0.0-0.012 X10*3/uL Prothrombin Time INR Reviewed date:05/19/2024 04:35:15 PM Interpretation: Performing Lab:[address] [address] Notes/Report: Prothrombin Time 12.4 11.1-13.3 SEC INTERNATIONAL NORM RATIO 1.0 0.9-1.1 INTERNATIONAL NORMALIZED RATIO (INR) REFERENCE RANGES Reference Range For patients not on anticoagulant therapy: 0.9 - 1.1 INR ranges for oral anticoagulant therapy: For prevention and treatment of venous thrombosis and pulmonary embolism: 2.0 - 3.0 For acute myocardial infarction with aspirin therapy: 2.0 - 3.0 For acute myocardial infarction without aspirin therapy: 3.0 - 4.0 For patients with mechanical prosthetic heart valves: 2.5 - 3.5 Liver Panel Reviewed date:05/19/2024 04:35:45 PM Interpretation: Performing Lab:[address] [address] Notes/Report: Bilirubin Total 1.0 0.0-1.0 mg/dL Bilirubin Direct 0.3 0.0-0.5 mg/dL Aspartate Amino Transferase 24 5-37 U/L Alanine Aminotransferase 20 0-40 U/L Total Protein 8.0 6.5-8.0 g/dL Albumin Level 4.4 3.5-5.0 g/dL Alkaline Phosphatase 85 39-117 U/L IRON PROFILE Reviewed date:05/19/2024 04:35:55 PM Interpretation: Performing Lab:[address] [place] [address] Notes/Report: Iron 129 45-160 mcg/dL Total Iron Binding Capacity 322 228-428 mcg/dL Percent Iron Saturation 40 15-50 % Unsaturated Iron Binding 193 Ferritin (Not yet reviewed b y provider) Interpretation: Performing Lab:[facility], [address] [place] [phone] Notes/Report: Ferritin 413 20-250 ng/mL Alpha Fetoprotein Reviewed date:05/27/2024 06:16:41 PM Interpretation: Performing Lab:[facility], [address] [place] [phone] Notes/Report: Alpha Fetoprotein 3.8 <6.1 ng/mL This test was performed using the [employer] Remi chemiluminescent method. Values obtained from different assay methods cannot be used interchangeably. AFP levels, regardless of value, should not be interpreted as absolute evidence of the presence or absence of disease. THIS TEST WAS PERFORMED AT: [facility] [address] [place] [phone] LEROY BLACKWOOD MD Liver Fibrosis Pnl Reviewed date:06/09/2024 04:57:04 PM Interpretation: Performing Lab:[facility], [address] [place] [phone] Notes/Report: Liver Fibrosis Score 0.66 Liver Fibrosis Stage F3 Liver Fibrosis Interpretation SEE NOTE advanced fibrosis Fibro Test Score (f) Metavir Score f>=0 and f<=0.21 : F0 (no fibrosis) f>0.21 and f<=0.27 : F0-F1 (no fibrosis) f>0.27 and f<=0.31 : F1 (minimal fibrosis) f>0.31 and f<=0.48 : F1-F2 (minimal fibrosis) f>0.48 and f<=0.58 : F2 (moderate fibrosis) f>0.58 and f<=0.72 : F3 (advanced fibrosis) f>0.72 and f<=0.74 : F3-F4 (advanced fibrosis) f>0.74 and f<=1.00 : F4 (severe fibrosis) Nec Inflam Act Score 0.08 Nec Inflam Act Grade A0 Nec Inflam Act Interpretation SEE NOTE no activity ActiTest Score (a) Metavir Score a>=0 and a<=0.17 : A0 (no activity) a>0.17 and a<=0.29 : A0-A1 (no activity) a>0.29 and a<=0.36 : A1 (minimal activity) a>0.36 and a<=0.52 : A1-A2 (minimal activity) a>0.52 and a<=0.60 : A2 (significant activity) a>0.60 and a<=0.62 : A2-A3 (significant activity) a>0.62 and a<=1.00 : A3 (severe activity) YOQ-Okheg-2-Macroglobuli n 479 106-279 mg/dL Unusual deviation wi th median value. FIB-Haptoglobin 152 43-212 mg/dL FIB-Apolipoprotein A1 193 94-176 mg/dL FIB-Total Bilirubin 0.6 0.2-1.2 mg/dL FIB-GGT 33 3-70 U/L FIB-ALT 15 9-46 U/L Reference ID [id number] Footnote SEE NOTE The reliability of results is dependent on compliance with the preanalytical and analytical conditions recommended by [facility]. The tests have to be deferred for: acute hemolysis, acute hepatitis, acute inflammation, extra hepatic cholestasis. The advice of a specialist should be sought for interpretation in chronic hemolysis and Gilbert's syndrome. The test interpretation is not validated in liver transplant patients. Isolated extreme values of one of the components should lead to caution in interpreting the results. In case of discordance between a biopsy result and a test, it is recommended to seek the advice of a specialist. The causes of these discordances could be due to a flaw of the test or to a flaw in the biopsy: i.e. a liver biopsy has a 33% variability rate for one fibrosis stage. FibroTest is interpretable for chronic hepatitis B and C, alcoholic and non alcoholic steatosis. ActiTest is interpretable for chronic hepatitis B and C. The performance characteristics have been determined by [facility]. It has not been cleared or approved by the U.S. Food and Drug Administration. Performance characteristics refer to the analytical performance of the test. [employer], the associated logo, [employer] and all associated [employer] arriaga are the registered trademarks of [employer]. All third democrat arriaga - (R) and (TM) - are the property of their respective owners. (C) 7998-4041 [employer]. All rights reserved. THIS TEST WAS PERFORMED AT: [facility] [facility] [address] [place] [address] DIGNA MATIAS MD,PHD,AMMON US abdomen comp w elastograp hy (Not yet reviewed by provider) Interpretation: Performing Lab: Notes/Report: [address] [address] Ultrasound Report Signed Patient: Bakari Smith MR#: [id number] : 1950 Acct:[id number] Age/Sex: 73 / M ADM Date: 05/19/24 Loc: HO.US Attending Dr: Josh Fontanez MD Ordering Physician: Josh Fontanez MD Date of Service: 05/19/24 Procedure(s): US abdomen comp w elastography Accession Number(s): [id number] cc: Bruce Dupree MD; Josh Fontanez MD EXAMINATION: US COMPLETE ABDOMEN WITH LIVER ELASTOGRAPHY CLINICAL INFORMATION: Fatty liver with cirrhosis. COMPARISON: Ultrasound abdomen 06/02/2023 TECHNIQUE: Real-time imaging of the abdominal viscera. Noninvasive ultrasound liver fibrosis assessment is performed using Aris ElastPQ point quantification shear wave elastography (pSWE) with a C5-2 MHz transducer. Multiple elastography samples are obtained. FINDINGS: PANCREAS: . The visualized pancreatic head and body are normal in appearance. The remainder of the pancreas is obscured from visualization by the overlying bowel gas. ABDOMINAL AORTA: The middle, and distal aortic segments are normal in caliber. Proximal aorta could not be seen. INFERIOR VENA CAVA: Visualized portions are normal. LIVER: The liver demonstrates normal size and contour but with increased echogenicity. The left lobe was difficult to visualize. No focal lesion or intrahepatic biliary duct dilatation. The right lobe measures 14.0 cm in length. In the prior study, the liver was measured at 17.5 cm. The left lobe measures 11.3 cm in length. Portal flow is towards the liver (hepatopetal). Shear wave liver elastography median stiffness is 1.35 m/s (reference: normal median stiffness is 1.3 m/s or less). IQR/median stiffness to assess sampling precision is 0.10 (reference: good quality data set is IQR/median stiffness of 0.15 or less). GALLBLADDER: Small gallbladder polyp is present, as seen previously. The gallbladder is physiologically distended without evidence of stones, sludge, wall thickening or pericholecystic fluid. COMMON BILE DUCT: Normal in caliber measuring 0.5 cm in diameter. RIGHT KIDNEY: . No hydronephrosis. No renal calculi . The kidney measures 11.3 cm in maximum dimension. A benign 5.2 cm Bosniak class II renal cyst is noted containing a single septation, which requires no additional imaging or follow up. No solid renal masses are seen. LEFT KIDNEY: No hydronephrosis. No renal calculi. The kidney measures 11.0 cm in maximum dimension. 2 benign renal cysts are noted which require no additional imaging or follow-up. One of the cysts is Bosniak class I, whereas the other contains a single septation, Bosniak class II. No solid renal masses are seen. SPLEEN: Normal. The spleen measures 11.9 cm in maximum dimension. FREE FLUID: None. US/US abdomen comp w elastography IMPRESSION: 1. Hepatic steatosis. 2. Gallbladder polyp and benign renal cysts, which need no follow-up. 2. Liver elastography: In the absence of other known clinical signs, measurements rule out compensated advanced chronic liver disease. If there are known clinical signs, further testing may be needed for confirmation. REFERENCE: Society of Radiologists in Ultrasound Liver Stiffness Thresholds (2019): LIVER STIFFNESS THRESHOLDS: *Liver Stiffness equal or less than 1.3 m/s: High probability of being normal. *Liver Stiffness less than 1.7 m/s: In the absence of other known clinical signs, rules out compensated advanced chronic liver disease. *Liver Stiffness 1.7-2.1 m/s: Suggestive of compensated advanced chronic liver disease but need further test for confirmation. *Liver Stiffness over 2.1 m/s: Rules in compensated advanced chronic liver disease. *Liver Stiffness over 2.4 m/s: Suggestive of clinically significant portal hypertension. QUALITY OF DATA SET: *IQR/Median value equal or less than 0.15 implies a quality data set. *IQR/Median value over 0.15 implies a poor quality data set. SIGNIFICANT CHANGE FROM PRIOR EXAM: Significant change if liver stiffness measurement is 10% or greater from prior exam. OTHER CONSIDERATIONS: The stage of liver fibrosis may be overestimated in the setting of acute hepatitis, liver inflammation, elevated liver function tests, hepatic vascular congestion, obstructive cholestasis, non-fasting state, and infiltrative diseases such as amyloidosis and lymphoma. In some patients with NAFLD, the liver stiffness thresholds for compensated advanced chronic liver disease may be lower. In causes other than viral hepatitis and NAFLD, liver stiffness thresholds are not well established. Electronically signed by: Jude Carodna MD 05/22/2024 09:54 PM EDT Dictated By: Jude Cardona MD Signed By: <Electronically signed by Jude Cardona MD in OV> 05/22/24 2154 DD/ 1044 TD/TT: 05/19/24 1103 Document Clerk: [address] [address] Ultrasound Report Signed Patient: Bakari Smith MR#: [id number] : 1950 Acct:[id number] Age/Sex: 73 / M ADM Date: 05/19/24 Loc: HO.US Attending Dr: Josh Fontanez MD Ordering Physician: Josh Fontanez MD Date of Service: 05/19/24 Procedure(s): US abdomen comp w elastography Accession Number(s): [id number] cc: Bruce Dupree MD; Josh Fontanez MD EXAMINATION: US COMPLETE ABDOMEN WITH LIVER ELASTOGRAPHY CLINICAL INFORMATION: Fatty liver with cirrhosis. COMPARISON: Ultrasound abdomen 06/02/2023 TECHNIQUE: Real-time imaging of the abdominal viscera. Noninvasive ultrasound liver fibrosis assessment is performed using Aris ElastPQ point quantification shear wave elastography (pSWE) with a C5-2 MHz transducer. Multiple elastography samples are obtained. FINDINGS: PANCREAS: . The visualized pancreatic head and body are normal in appearance. The remainder of the pancreas is obscured from visualization by the overlying bowel gas. ABDOMINAL AORTA: The middle, and distal aortic segments are normal in caliber. Proximal ao rta could not be seen. INFERIOR VENA CAVA: Visualized portions are normal. LIVER: The liver demonstrates normal size and contour but with increased echogenici ty. The left lobe was difficult to visualize. No focal lesion or intrahepatic biliary duct dilatation. The right lobe measu res 14.0 cm in length. In the prior study, the liver was measured a t 17.5 cm. The left lobe measures 11.3 cm in length. Portal flow is towar ds the liver (hepatopetal). Shear wave liver elastography median stiffness is 1.35 m/s (reference: normal median stiffn ess is 1.3 m/s or less). IQR/median stiffness to assess sampling precision is 0.10 (reference: good quality data se t is IQR/median stiffness of 0.15 or less). GALLBLADDER: Small gallbladder polyp is present, as seen previously. The gallbladder is physiologically distended without evidence of stones, sludge, wall thickening or pericholecystic fluid. COMMON BILE DUCT: Normal in caliber measuring 0.5 cm in diameter. RIGHT KIDNEY: . No hydronephrosis. No renal calculi . The kidney measures 11.3 cm in maximum dimension. A benign 5.2 cm Bosniak class II renal cyst is noted containing a single septation, which requires no additional imaging o r follow up. No solid renal masses are seen. LEFT KIDNEY: No hydronephrosis. No renal calculi. The kidney measures 11.0 cm in maximum dimension. 2 benign renal cysts are noted which require no additiona l imaging or follow-up. One of the cysts is Bosniak class I, whereas the other contains a single septation, Bosniak class II. No solid renal masses are seen. SPLEEN: Normal. The spleen measures 11.9 cm in maximum dimension. FREE FLUID: None. US/US abdomen comp w elastography IMPRESSION: 1. Hepatic steatosis. 2. Gallbladder polyp and benign renal cysts, which need no follow-up. 2. Liver elastograph y: In the absence of other known clinical signs, measurements rule ou t compensated advanced chronic liver disease. If there are known clinical signs, further testing may be needed for confirmation. REFERENCE: Society of Radiologi sts in Ultrasound Liver Stiffness Thresholds (2020): LIVER STIFFNESS THRESHOLDS: *Liver Stiffness equ al or less than 1.3 m/s: High probability of being normal. *Liver Stiffness les s than 1.7 m/s: In the absence of other known clinical signs, rule s out compensated advanced chronic liver disease. *Liver Stiffness 1.7-2.1 m/s: Suggestive of compensated advanced chronic liver diseas e but need further test for confirmation. *Liver Stiffness ove r 2.1 m/s: Rules in compensated advanced chronic liver disease. *Liver Stiffness ove r 2.4 m/s: Suggestive of clinically significant portal hypertension. QUALITY OF DATA SET: *IQR/Median value eq ual or less than 0.15 implies a quality data set. *IQR/Median value ov er 0.15 implies a poor quality data set. SIGNIFICANT CHANGE F ROM PRIOR EXAM: Significant change i f liver stiffness measurement is 10% or greater from prior exam. OTHER CONSIDERATIONS: The stage of liver fibrosis may be overestimated in the setting of acute hepatitis, billie er inflammation, elevated liver function tests, hepatic vascular congestion, obstructive cholestasis, non-fasting state, and infiltrat ulices diseases such as amyloidosis and lymphoma. In some patients with NAFLD, the liver stiffness thresholds for compensated advanced chronic liver disease may be lower. In causes other than viral hepatitis and NAFLD, liver stiffness thresholds are not well established. Electronically kyle d by: Jude Cardona MD 05/22/2024 09:54 PM EDT RP Dictated By: Jude Cardona MD Signed By: <Electronically signed by Jued Cardona MD in OV> 05/22/24 2154 DD/ 1044 TD/TT: 05/19/24 1103 Document Clerk: SS Reason For Referral No Information Medications Medication SIG (Take, Route, Frequency, Duration) Notes Start Date End Date Status Ursodiol 500 MG TAKE 2 TABLETS BY [facility] EVERY MORNING AND 1 TABLET EVERY EVENING Orally Twice a day for 30 days Active Atorvastatin Calcium 10 MG 1 tablet Oral ly Once a day Active Citalopram Hydrobromide 20 MG 1 tablet Orally Once a day for 30 day(s) Active Pantoprazole Sodium 40 MG 1 tablet Orall y Once a day for 30 day(s) PRN Active Dicyclomine HCl 10 MG 2 capsules Orally Three times a day for 30 day(s) Active Immunizations Vaccine Route Administration Date Status Comme nts Influenza Unknown 08/05/2021 Administered Influenza Unknown 05/21/2022 Administered Influenza Unknown 08/11/2022 Administered Social History Tobacco Use: Social History Observation Description Date Details (start date - stop date) Never Smoker NA - NA Tobacco Use/Smoking Question Answer Notes Patient is a nonsmoker Alcohol Screen Question Answer Notes Did you have a drink containing alcohol in the p ast year? No Points 0 Interpretation Negative Section Notes: Nonsmoker; no sig alcohol Nonsmoker; no sig alcohol Nonsmoker; no sig alcohol Nonsmoker; no sig alcohol Nonsmoker; no sig alcohol Nonsmoker; no sig alcohol Nonsmoker; no sig alcohol Problems Problem Type SNOMED Code ICD Code Onset Dates Problem Status W/U Status Risk Notes Problem Oesophageal varices without bleeding (44554507) Secondary esophageal varices without bleeding (I85.10) Active confirmed Problem Other cirrhosis of liver (K74.69) Active confirmed Problem 727949481 Elevated liver function tests (R79.89) Active confirmed Problem 916008853 Elevated liver enzymes (R74.8) Active confirmed Problem 185479443 Fatty liver (K76.0) Active confirmed Problem 35799072 Iron excess (E83.19) Active confirmed Problem Cirrhotic (862199127) Cirrhosis (K74.60) Active confirmed Problem Gastritis (6888764) Gastritis (K29.70) Active confirmed Problem 199125263 Elevated ferritin (R79.89) Active confirmed Problem 988489418 Liver enzyme elevation (R74.8) Active confirmed Vital Signs Blood pressure diastolic 00 mm Hg 06/13/2024 Height 70 in 06/13/2024 Blood pressure systolic 00 mm Hg 06/13/2024 Weight 218 lbs 06/13/2024 BMI 31.28 kg/m2 06/13/2024 Encounters Encounter Location Date Provider Diagnosis [facility] [address] [place] [phone] 06/13/2024 Josh Fontanez Elevated liver function tests R79.89 ; Other cirrhosis of liver K74.69 and Elevated ferritin R79.89 [facility] [address] [place] [phone] 05/09/2024 Josh Fontanez Fatty liver K76.0 ; Cirrhosis K74.60 and Iron excess E83.19 [facility] [address] [place] [phone] 06/13/2024 Josh Fontanez [facility] [address] [place] [phone] 08/15/2024 Josh Fontanez [facility] [address] [place] [phone] 12/12/2024 Josh Fontanez Assessments Encounter Date Diagnosis (ICD Code) Assessment Notes Treatment Notes Treatment Clinical Notes Section Notes 06/13/2024 Other cirrhosis of liver (ICD-10 - K74.69) Continue the Ursodiol, watch diet, and lose weight. Overall, Bakari appears quite well. He does not describe any symptoms nor show any signs of progressive liver disease. All his recent laboratories and ultrasound are quite reassuring in that regard as well. We did review his underlying cirrhosis but at this point it remains well- compensated. I did advise him to continue his ursodiol at the current regimen. We did discuss the importance of trying to watch his diet and lose some weight again. If things remains stable I will plan to see him in one year for a followup office visit at which time we will repeat his laboratories and ultrasound. I did advise him to certainly call me prior to that if he has any problems or questions I can be of assistance with. Bakari was comfortable with this plan. Thank you again for allowing me to participate in Bakari's care. I shall continue to keep you advised of his progress. 06/13/2024 Elevated liver function tests (ICD-10 - R79.89) Overall, Bakari appears quite well. He does not describe any symptoms nor show any signs of progressive liver disease. All his recent laboratories and ultrasound are quite reassuring in that regard as well. We did review his underlying cirrhosis but at this point it remains well- compensated. I did advise him to continue his ursodiol at the current regimen. We did discuss the importance of trying to watch his diet and lose some weight again. If things remains stable I will plan to see him in one year for a followup office visit at which time we will repeat his laboratories and ultrasound. I did advise him to certainly call me prior to that if he has any problems or questions I can be of assistance with. Bakari was comfortable with this plan. Thank you again for allowing me to participate in Bakari's care. I shall continue to keep you advised of his progress. 05/09/2024 Fatty liver (ICD-10 - K76.0) 05/09/2024 Cirrhosis (ICD-10 - K74.60) 06/13/2024 Elevated ferritin (ICD-10 - R79.89) Overall, Bakari appears quite well. He does not describe any symptoms nor show any signs of progressive liver disease. All his recent laboratories and ultrasound are quite reassuring in that regard as well. We did review his underlying cirrhosis but at this point it remains well- compensated. I did advise him to continue his ursodiol at the current regimen. We did discuss the importance of trying to watch his diet and lose some weight again. If things remains stable I will plan to see him in one year for a followup office visit at which time we will repeat his laboratories and ultrasound. I did advise him to certainly call me prior to that if he has any problems or questions I can be of assistance with. Bakari was comfortable with this plan. Thank you again for allowing me to participate in Bakari's care. I shall continue to keep you advised of his progress. 05/09/2024 Iron excess (ICD-10 - E83.19) Plan Of Treatment Pending Test Test Name Order Date LIVER PROFILE 06/09/2022 LIVER PROFILE 06/13/2023 LIVER PROFILE 10/29/2022 LIVER PROFILE 12/27/2021 LIVER PROFILE 02/12/2023 LIVER PROFILE 05/09/2024 LIVER PROFILE 10/13/2022 IRON + IBC (FE) 05/09/2024 IRON + IBC (FE) 12/19/2021 IRON + IBC (FE) 06/13/2023 IRON + IBC (FE) 10/29/2022 IRON + IBC (FE) 12/27/2021 CBC w DIFF 10/13/2022 CBC w DIFF 05/09/2024 PROTHROMBIN TIME (PT, INR) 06/09/2022 [id number] (A1A) 12/19/2021 ALPHA-FETOPROTEIN,TUMOR MARKER 4 ALPHA-FETOPROTEIN,TUMOR MARKER 3 US ABD 11/13/2022 US LIVER BIOPSY CORE GUIDE 10/13/2022 FLUOR. ANTINUCLEAR AB SCREEN (ROSANNA) 09/2021 DNA Analysis Hemochromatosis 12/27/2021 Prothrombin Time INR 05/09/2024 Liver Panel 07/31/2022 IRON PROFILE 02/12/2023 Ferritin 05/09/2024 Ferritin 10/29/2022 Ferritin 12/27/2021 Ferritin 02/12/2023 Ferritin 05/19/2024 Ferritin 06/13/2023 Liver Fibrosis Pnl 05/09/2024 Liver Fibrosis Pnl 06/09/2022 Liver Fibrosis Pnl 07/31/2022 Bile Acids Total, Fractionated 2 Bile Acids Total, Fractionated 2 US abdomen comp w elastography 4 US abdomen comp w elastography 4 Future Test Test Name Order Date UPPER GI ENDOSCOPY 02/12/2023 Next Appt Details Provider Name:Josh Fontanez , 06/12/2025 09:10:00 AM, [address] [facility], [address], [place], [address], Insurance Providers Payer Name Payer Address Payer Phone Subscriber Number Group Number Insured Name Patient Relationship to Insured Coverage Start Date Coverage End Date MEDIC[place] OF [place] [address] [place] [address] [id number] BAKARI SMITH Self - patient is the insured [employer] ATT[employer] CLAIMS [address] [place] [address] [id number] BAKARI SMITH Self - patient is the insured Medical (General) History Medical History History ICD Code High cholesterol Denies MD,DM,CVA,Lung disease,renal dise ase IBS Anxiety GERD-EGD in 03/[address] Johns revealed some minimal changes of reflux and gastritis, with biopsies negative for celiac disease, H. pylori, and Pompa's esophagus. Negative colonoscopies in 2009 with me a nd in [address] Johns Fatty liver with just slight ly elevated LFTs--hepatomegaly has been noted on his ultrasounds-his liver workup was completely negative in 2021. He did develop some pruritus in 2021 but it was not clear if that was in relation to his liver disease--serum bile salts were normal Cirrhosis and steatohepatiti s seen on his liver biopsy in October of 2022. He was started on ursodiol at that time. Iron stain showed only minimal hepatocellular iron. He did have a ferritin level of 625 in December of 2021, but his iron and iron saturation were normal at that time. 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 pylori, and a small hiatal hernia Torn meniscus with platelet injection 20 24 Spine injections for pain Surgical History Surgery Date(Month/Year) Hand Thumb Wrist Right rotator cuff 12/2021
--- OUTSIDE RECORDS SUMMARY | 2025-01-22 13:08 | XMS_ITS ---
Author Organization [facility] Address [address] [place] [address] Care Team Providers Care Insulation Extruder Operator Name Role Phone Leia ESPANA, Bruce Primary Care Provider Josh Arias [phone] REASON FOR VISIT would like to know if you think this product would be okay to try Encounters Encounter Location Date Provider Diagnosis [facility] [address] [place] [address] 08/15/2024 Josh Fontanez Plan Of Treatment Next Appt Details Provider Name:Josh Fontanez , 06/12/2025 09:10:00 AM, [address], [address], [place], [address], Progress Notes * BAKARI MARISCAL LDOB:1950 (73 yo M)Acc No.[id number]:08/15/2024 Patient:?BAKARI MARISCAL :1950???Age:73 Y???Sex:Male Address:[address] [place] [address] * true * Date:? Generated for Printi ng/Fajohng/eTransmitting on:?01/22/2025 01:08 PM EDT
--- OUTSIDE RECORDS SUMMARY | 2025-01-22 13:09 | XMS_ITS ---
Author Organization Bruce Dupree MD Address [address] [place], [place] [phone] Care Team Providers Care At Home Independent Call Center Agent Name Role Phone Bruce Dupree Primary Care Provider Allergies No Known Allergies REASON FOR VISIT DIZZY SPELLS Medications Medication SIG (Take, Route, Frequency, Duration) Notes Start Date End Date Status oxyCODONE HCl 5 MG 1 tablet as needed Orally daily as needed for 30 days 06/15/2023 Not-Taking Xanax 0.25 MG 1 tablet Orally Twic e a day as needed for 5 days 05/07/2023 Not-Taking Tylenol Extra Strength 500 MG 1 tablet as needed Orally every 6 hrs Not-Taking dexAMETHasone 4 MG 1 tablet Orally Thre e times a day for 5 days 04/05/2023 Not-Takin g Atorvastatin Calcium 10 MG 1 tablet Oral ly Once a day for 90 days Active Protonix 40 MG 1 tablet Orally Once a day for 90 days 02/10/2019 Active Ursodiol 500 MG 1 tablet Orally twic e a day Active Citalopram Hydrobromide 20 MG 1 tablet Orally Once a day for 90 days Active Dicyclomine HCl 10 MG 2 capsules Oral on ce a day for 90 days Active Ibuprofen 800 MG 1 tablet Orally Thre e times a day for 30 day(s) 05/01/2015 Active Vital Signs Blood pressure systolic 142 mm Hg 11/10/19 25 Blood pressure diastolic 70 mm Hg 025 Height 69 in 11/10/2024 Weight 220 lbs 11/10/2024 BMI 32.48 kg/m2 11/10/2024 weight is up 3 pounds since 01-25-24 Encounters Encounter Location Date Provider Diagnosis Bruce Dupree MD [address] [place] [address] [address] [place] [phone] 11/10/2024 Bruce Dupree Vertigo R42 Assessments Encounter Date Diagnosis (ICD Code) Assessment Notes Treatment Notes Treatment Clinical Notes Section Notes 11/10/2024 Vertigo (ICD-10 - R42) referral to physical therapy for vestibular therapy 11/10/2024 Other PATIENT WANTED TO TAKE HIS ORDER WITH HIM HE IS CALLING A FEW PLACES AND WILL DECIDE WHERE TO GO Plan Of Treatment Treatment Notes Assessment Notes Vertigo referral to physical therapy for vestibular therapy Other PATIENT WANTED TO TA KE HIS ORDER WITH HIM HE IS CALLING A FEW PLACES AND WILL DECIDE WHERE TO GO Next Appt Details Provider Name:Bruce Stern ier, 01/29/2025 10:30:00 AM, [address] [place] [address], [address] [facility], [place], [place], [phone], Progress Notes * Paul SMITH LDOB:1950 (74 yo M)Acc No.[id number]:11/10/2024 Progress Notes Patient:?Paul SMITH Provider:?Bruce Dupree MD :1950???Age:74 Y???Sex:Male Haile e:11/10/2024 Address:[address] [place], [place] [phone] Subjective: * Chief Complaints: * ???DIZZY SPELLS * HPI: ???Fall Risk:?History?Have you had any falls with injury in the past year??Yes 2--25 fell forward picking up a package on his porch..?patient is a 74 yo male here with complaint of dizzy spells.? has been doing well after knee platelet injection. back doing better after back injection. having trouble with dizziness. looking up room spins. was picking something up somethink and room spins and he fell over gets nausea with it. * ROS:?General/Constitutional:?Denies?Chills.?Denies?Fatigue.?Denies?Fever.?Denies?Headache.?ENT:?Patient denies?decreased sense of smell, any loss of taste, sore throat.?Denies?Sore throat.?Respiratory:?Denies?Cough.?Denies?Shortness of breath at rest.?Denies?Shortness of breath with exertion.?Gastrointestinal:?Denies?Diarrhea.?Denies?Nausea.?Musculoskeletal:?Patient denies?muscle aches.?Peripheral Vascular:?Patient denies?red and blue toes.? * Medical History:? * Surgical History:? * Hospitalization/Major Diagno stic Procedure:? * Medications:?TakingUrsodiol 500 MG Tablet 1 tablet Orally twice a day Protonix 40 MG Tablet Delayed Release 1 tablet Orally Once a day Dicyclomine HCl 10 MG Capsule 2 capsules Oral once a day Citalopram Hydrobromide 20 MG Tablet 1 tablet Orally Once a day Ibuprofen 800 MG Tablet 1 tablet Orally Three times a day Atorvastatin Calcium 10 MG Tablet 1 tablet Orally Once a day Taking Ursodiol 500 MG Tablet 1 tablet Orally twice a day Taking Protonix 40 MG Tablet Delayed Release 1 tablet Orally Once a day Taking Dicyclomine HCl 10 MG Capsule 2 capsules Oral once a day Taking Citalopram Hydrobromide 20 MG Tablet 1 tablet Orally Once a day Taking Ibuprofen 800 MG Tablet 1 tablet Orally Three times a day Taking Atorvastatin Calcium 10 MG Tablet 1 tablet Orally Once a day Not-Taking/PRNoxyCODONE HCl 5 MG Tablet 1 tablet as needed Orally daily as needed Tylenol Extra Strength 500 MG Tablet 1 tablet as needed Orally every 6 hrs Xanax 0.25 MG Tablet 1 tablet Orally Twice a day as needed dexAMETHasone 4 MG Tablet 1 tablet Orally Three times a day Medication List reviewed and reconciled with the patientNot-Taking/PRN oxyCODONE HCl 5 MG Tablet 1 tablet as needed Orally daily as needed Not-Taking/PRN Tylenol Extra Strength 500 MG Tablet 1 tablet as needed Orally every 6 hrs Not-Taking/PRN Xanax 0.25 MG Tablet 1 tablet Orally Twice a day as needed Not-Taking/PRN dexAMETHasone 4 MG Tablet 1 tablet Orally Three times a day Medication List reviewed and reconciled with the patient * Allergies:?N.K.D.A.yes[Aller gies Verified] Objective: * Vitals:?Ht: 69, Wt: 220, BMI :32.48, BP:142/70, Repeat BP:130/80, Wt-k.79. weight is up 3 pounds since 01-25-24. * Examination: ???General Examination: ?GENERAL APPEARANCE:?alert, well hydrated, in no distress.?HEAD:?normocephalic.?SKIN:?good turgor.?HEART:?regular rate and rhythm, no murmurs, rubs, gallops.?LUNGS:?no wheezes, rales, rhonchi, good air movement, clear to auscultation bilaterally.? Assessment: * Assessment: 1.?Vertigo - R42 (Primary)?? ? Plan: * Treatment: 2.?Others? Notes: PATIENT WANTED TO TAKE HIS ORDER WITH HIM HE IS CALLING A FEW PLACES AND WILL DECIDE WHERE TO GO?? * Procedure Codes:? * * Sign off status: Completed true * Provider:?Bruce Dupree MD Date:?0 11/10/2024 Generated for Antonio loya/Farzana/eTmaryam on:?01/22/2025 01:08 PM EDT History and Physical Notes * HPI (History of Present Illness) Category Sub-Category Detail Notes Category Not es Fall Risk History Have you had any falls with injury in the past year?: Yes 11-06-24 fell forward picking up a package on his porch. patient is a 74 yo male here with complaint of dizzy spells. has been doing well after knee platelet injection. back doing better after back injection. having trouble with dizziness. looking up room spins. was picking something up somethink and room spins and he fell over gets nausea with it. Examination Category Sub-Category Detail Notes Category Not es General Examination GENERAL APPEARANCE: alert, w ell hydrated, in no distress HEAD: normocephalic HEART: regular rate and rhy thm, no murmurs, rubs, gallops LUNGS: no wheezes, rales, r honchi, good air movement, clear to auscultation bilaterally SKIN: good turgor
--- OUTSIDE RECORDS SUMMARY | 2025-01-22 13:09 | XMS_ITS ---
Author Organization Bruce Dupree MD Address [address] [place] [phone] Care Team Providers Care Supervisor Lens Generating Name Role Phone LeiaAminatan Primary Care Provider Results Component Value Reference Range Notes PSA,Total (Free>4and<10) (No t yet reviewed by provider) Interpretation: Performing Lab:[facility], [address] [place] [phone] Notes/Report: PSA,Total (Free>4and<10) 1.69 0.00-4.00 ng/mL A Free PSA was not performed: The percentage of Free PSA can be used to enhance the differentiation of prostate cancer from benign prostatic disease in subjects whose PSA levels are between 4.0 and 10.0 ng/mL. For subjects whose PSA levels are below 4.0 or above 10.0 ng/mL, the risk of prostate cancer is determined on the basis of the PSA alone. Therefore the % Free PSA is recommended only for those subjects whose PSA levels are between 4.0 and 10.0 ng/mL. PSA methodology: Stokes Alinity i Chemiluminescent Microparticle Immunoassay (CMIA) Microalbumin, Random (Not y et reviewed by provider) Interpretation: Performing Lab:[facility], [address] [place] [phone] Notes/Report: Creatinine Urine 191.50 Microalbumin Urine 14.0 Microalbum/Creatinine Ratio Ur 7.3 <30 ug/mg cr Albumin/Creatinine Ratio Reference Ranges: Normal: < 30 ug/mg creatinine Microalbuminuria: 30 - 300 ug/mg creatinine Clinical Albuminuria: > 300 ug/mg creatinine Hemoglobin A1c (Not yet revi ewed by provider) Interpretation: Performing Lab:[facility], [address] [place] [phone] Notes/Report: Hemoglobin A1c % 5.8 <6.0 % Hemoglobin A1C Reference Range Adults: 4.8 - 6.0 % Non diabetic: < 6.0 % Goal: < 7.0 % Additional Action Suggested: > 8.0 % Note: Hemoglobin A1c results are invalid for patients with abnormal amounts of HbF. Blood transfusions may impact the HbA1c concentration in the patient sample. Estimated Average Glucose 120 eAG = Estimated average glucose which is %A1C expressed as average glucose, using the formula of the I9D-Enlalcn Average Glucose study (ADAG), Diabetes Care, Vol.31,#8, Apr. 2007 UA ClnCatch+Micro w/rflx Cul t (Not yet reviewed by provider) Interpretation: Performing Lab:[facility], [address] [place] [phone] Notes/Report: Urine, Clean Catch Color Urine Dark Yellow Appearance Urine Clear PH 5.5 5.0-9.0 Glucose Urine UA Negative Negative mg/dL Urine Blood Negative Negative Specific [place] - Urine 1.020 1.005-1.025 Urine Protein Negative Neg-Trace mg/dL Urine Ketones Negative Negative mg/dL Nitrite Urine Negative Negative Leukocyte Esterase Urine Negative Negative RBC Urine 0-2 0-2 /HPF WBC Urine 0-5 0-5 /HPF Squamous Epithelial Cell Urine 0-2 0-2 /HPF Bacteria Urine None Seen None Seen Hyaline Casts Urine 0-2 0-2 /LPF Complete Blood Count Auto Di ff Reviewed date:01/22/2025 12:37:18 PM Interpretation: Performing Lab:[facility], [address] [place] [phone] Notes/Report: White Blood Count 5.2 4.8-10.8 X10*3/uL Red Blood Count 5.41 4.60-5.80 X10*6/uL Hemoglobin 16.4 14.0-18.0 g/dl Hematocrit 48.5 42.0-52.0 % Mean Corpuscular Volume 89.6 80.0-98.0 fL Mean Corpuscular Hemoglobin 30.3 27.0-33.0 pg Mean Corpuscular HGB Conc 33.8 31.0-36.0 g/dl Red Cell Distribution Width 13.4 11.0-16.0 % Platelet Count 223 160-400 X10*3/uL Mean Platelet Volume 11.3 9.4-12.4 fL Neutrophils Percent Auto 62.3 45-73 % Imm Gran Pct Auto 0.4 0.0-0.4 % Lymphocytes Percent Auto 22.2 20-40 % Monocytes Percent Auto 11.7 2-11 % Eosinophils Percent Auto 2.3 0-4 % Basophils Percent Auto 1.1 0-2 % NRBC Pct Auto 0.0 0.0-0.2 /100WBC Neutrophils Absolute Auto 3.3 2.0-8.3 x10*3/u L Imm Gran Abs Auto 0.02 0.00-0.03 X10*3/uL Lymphocytes Absolute Auto 1.2 1.2-4.9 X10*3/u L Monocytes Absolute Auto 0.6 0.1-1.2 X10*3/uL Eosinophils Absolute Auto 0.1 0.0-0.4 X10*3/u L Basophils Absolute Auto 0.1 0.0-0.2 X10*3/uL NRBC Abs Auto 0.000 0.0-0.012 X10*3/uL REASON FOR VISIT yearly fasting labs Encounters Encounter Location Date Provider Diagnosis Bruce Dupree MD [address] [place] [address] [address] [place], [place] [phone] 01/22/2025 Bruce Dupree Prediabetes R73.09 ; Elevated liver enzymes R74.8 and Pure hypercholesterolemia E78.00 Assessments Encounter Date Diagnosis (ICD Code) Assessment Notes Treatment Notes Treatment Clinical Notes Section Notes 01/22/2025 Prediabetes (ICD-10 - R73.09) 01/22/2025 Elevated liver enzym es (ICD-10 - R74.8) 01/22/2025 Pure hypercholesterolemia (ICD-10 - E78.00) Plan Of Treatment Pending Test Test Name Order Date Comprehensive [place]. Panel Fast Liver Panel 01/22/2025 Lipid Panel 01/22/2025 PSA,Total (Free>4and<10) 01/22/2025 Microalbumin, Random 01/22/2025 Hemoglobin A1c 01/22/2025 UA ClnCatch+Micro w/rflx Cult 01/22/2025 Next Appt Details Provider Name:Bruce Stern ier, 01/29/2025 10:30:00 AM, [address] [place] [address], [address], [place], [place], [phone], Progress Notes * Paul SMITH LDOB:1950 (74 yo M)Acc No.[id number]:01/22/2025 Progress Note Patient:?Paul SMITH Provider:?Bruce Dupree MD :1950???Age:74 Y???Sex:Male Haile e:01/22/2025 Address:[address] [place], [place] [phone] Subjective: * Chief Complaints: * ???1. Yearly fasting labs. * Medical History:? Objective: * Vitals:? Assessment: * Assessment: 1.?Prediabetes - R73.09 (Becka montoya)???2.?Elevated liver enzymes - R74.8???3.?Pure hypercholesterolemia - E78.00??? Plan: * Treatment: 2.?Elevated liver enzymes?LAB: Comprehensive [place]. Panel Fast ?LAB: Liver Panel ?LAB: Lipid Panel ?LAB: PSA,Total (Free>4and<10) (Collection Date & Time - 01/22/2025 07:30 AM) ?LAB: Microalbumin, Random (Collection Date & Time - 01/22/2025 07:30 AM) ?LAB: Hemoglobin A1c (Collection Date & Time - 01/22/2025 07:30 AM) ?LAB: UA ClnCatch+Micro w/rflx Cult (Collection Date & Time - 01/22/2025 07:30 AM) ?LAB: Complete Blood Count Auto Diff (Collection Date & Time - 01/22/2025 07:30 AM) 3.?Pure hypercholesterolemia ?LAB: Comprehensive [place]. Panel Fast ?LAB: Liver Panel ?LAB: Lipid Panel ?LAB: PSA,Total (Free>4and<10) (Collection Date & Time - 01/22/2025 07:30 AM) ?LAB: Microalbumin, Random (Collection Date & Time - 01/22/2025 07:30 AM) ?LAB: Hemoglobin A1c (Collection Date & Time - 01/22/2025 07:30 AM) ?LAB: UA ClnCatch+Micro w/rflx Cult (Collection Date & Time - 01/22/2025 07:30 AM) ?LAB: Complete Blood Count Auto Diff (Collection Date & Time - 01/22/2025 07:30 AM) * Procedure Codes:?85114 VENIP UNCT, ROUTINE* * * The named appointment provid er may or may not be the originator of this progress note, and it is not deemed complete until electronically signed by the appointment provider. Sign off status: Pending * Provider:?Bruce Dupree MD Date:?0 01/22/2025 Generated for Antonio loya/Farzana/Pamelaitting on:?01/22/2025 01:09 PM EDT
--- OUTSIDE RECORDS SUMMARY | 2025-01-22 13:09 | XMS_ITS | Patient Health Record ---
Author Organization Bruce Dupree MD Address [address] [place] [phone] Care Team Providers Care Sliver Chopper Name Role Phone TesfayeAminata alann Primary Care Provider Allergies No Known Allergies Results Component Value Reference Range Notes PSA,Total (Free>4and<10) (No t yet reviewed by provider) Interpretation: Performing Lab:[facility], [address] [place] [phone] Notes/Report: PSA,Total (Free>4and<10) 1.69 0.00-4.00 ng/mL A [...] Chemiluminescent Microparticle Immunoassay (CMIA) Microalbumin, Random (Not ye t reviewed by provider) Interpretation: Performing Lab:[facility], [address] [place] [phone] Notes/Report: Creatinine Urine 191.50 Microalbumin Urine 14.0 Microalbum/Creatinine Ratio Ur 7.3 <30 ug/mg cr Albumin/Creatinine Ratio Reference Ranges: Normal: < 30 ug/mg creatinine Microalbuminuria: 30 - 300 ug/mg creatinine Clinical Albuminuria: > 300 ug/mg creatinine Hemoglobin A1c (Not yet revi ewed by provider) Interpretation: Performing Lab:[address] [phone] Notes/Report: Hemoglobin A1c % 5.8 <6.0 % [...] average glucose, using the formula of the I4W-Hqjhyag Average Glucose study (ADAG), Diabetes Care, Vol.31,#8, Apr. 2007 UA ClnCatch+Micro w/rflx Cul t (Not yet reviewed by provider) Interpretation: Performing Lab:[address] [address] Notes/Report: Urine, Clean Catch Color Urine Dark Yellow Appearance Urine Clear PH 5.5 5.0-9.0 Glucose Urine UA Negative Negative mg/dL Urine Blood Negative Negative Specific [place] - Urine 1.020 1.005-1.025 Urine Protein Negative [...] ff Reviewed date:01/22/2025 12:37:18 PM Interpretation: Performing Lab:[facility], [address] [place] [phone] Notes/Report: White Blood Count 5.2 4.8-10.8 X10*3/uL [...] 0.0-0.2 /100WBC Neutrophils Absolute Auto 3.3 2.0-8.3 x10*3/uL Imm Gran Abs Auto 0.02 0.00-0.03 X10*3/uL Lymphocytes Absolute Auto 1.2 1.2-4.9 X10*3/uL Monocytes Absolute Auto 0.6 0.1-1.2 X10*3/uL Eosinophils Absolute Auto 0.1 0.0-0.4 X10*3/uL Basophils Absolute Auto 0.1 0.0-0.2 X10*3/uL NRBC Abs Auto 0.000 0.0-0.012 X10*3/uL Occult Blood, Stool, Guaiac Reviewed date:01/25/2024 12:08:28 PM Interpretation: Performing Lab: Notes/Report: Occult Blood, Stool, Guaiac Neg US abdomen comp w elastograp hy Reviewed date:05/23/2024 05:12:33 PM Interpretation: Performing Lab: Notes/Report: [address] [address] Ultrasound Report Signed Patient: Paul Smith MR#: [id number] : 1950 Acct:[id number] Age/Sex: 73 / M ADM Date: 05/19/24 Loc: HO.US Attending Dr: Josh Fontanez MD Ordering Physician: Josh Fontanez MD Date of Service: 05/19/24 Procedure(s): US abdomen comp w elastography Accession Number(s): [id number] cc: Bruce Dupree MD; Josh Fontanez MD [...] of Radiologists in Ultrasound Liver Stiffness Thresholds (2020): LIVER STIFFNESS THRESHOLDS: *Liver Stiffness equal or [...] not well established. Electronically signed by: Jude Cardona MD 05/22/2024 09:54 PM EDT Dictated By: Jude Cardona MD Signed By: <Electronically signed by Jude Cardona MD in OV> 05/22/24 2154 DD/ 1044 TD/TT: 05/19/24 1103 Platform Consultant: LEXI [address] [address] Ultrasound Report Signed Patient: Paul Smith MR#: [id number] : 1950 Acct:[id number] Age/Sex: 73 / M ADM Date: 05/19/24 Loc: HO.US Attending Dr: Josh Fontanez MD Ordering Physician: Josh Fontanez MD Date of Service: 05/19/24 Procedure(s): US abdomen comp w elastography Accession Number(s): [id number] cc: Bruce Dupree MD; Josh Fontanez MD [...] Radiologi sts in Ultrasound Liver Stiffness Thresholds (2019): LIVER STIFFNESS THRESHOLDS: *Liver Stiffness equ al [...] 05/22/24 2154 DD/ 1044 TD/TT: 05/19/24 1103 Platform Consultant: LEXI Reason For Referral No Information Medications Medication [...] day for 5 days 04/05/2023 Not-Takin g Protonix 40 MG 1 tablet Orally Once a day for 90 days 02/10/2019 Active Ursodiol 500 MG 1 tablet Orally twic e a day Active Citalopram Hydrobromide 20 MG 1 tablet Orally Once a day for 90 days Active Dicyclomine HCl 10 MG 2 capsules Oral on ce a day for 90 days Active Atorvastatin Calcium 10 MG 1 tablet Oral ly Once a day for 90 days Active Ibuprofen 800 MG 1 tablet Orally Thre e times a day for 30 day(s) 05/01/2015 Active Immunizations Vaccine Route Administration Date Status Comme nts Flu Vaccine IM Intramuscular 06/15/2011 Administered Flu Vaccine IM Intramuscular 07/12/2012 Administered Flu Vaccine IM Intramuscular 08/01/2013 Administered Shingles IM Intramuscular 08/11/2013 Administered Flu Vaccine IM Intramuscular 07/26/2014 Administered PPSV23 (Pnemovax) IM Intramuscular 09/10/2014 Administered Fluarix Quadrivalent IM Intramuscular 07/18/2015 Administe red Prevnar 13 IM Intramuscular 11/01/2015 Administered Fluarix Quadrivalent IM Intramuscular 08/07/2016 Administe red TDaP IM Intramuscular 08/07/2016 Administered Fluarix Quadrivalent IM Intramuscular 06/29/2017 Administe red Fluarix Quadrivalent IM Intramuscular 07/25/2018 Administe red Shingrix IM Intramuscular 08/08/2018 Administered Shingrix IM Intramuscular 10/25/2018 Administered Influenza High Dose IM Intramuscular 07/25/2019 Administer ed Influenza High Dose IM Intramuscular 05/31/2020 Administer ed Covid Vaccine Unknown 12/04/2020 Administered Pfizer Influenza High Dose IM Intramuscular 06/03/2021 Administer ed SARS-COV-2 Pfizer Unknown 12/25/2020 Administered SARS-COV-2 Pfizer Unknown 06/26/2021 Administered Fluarix Quadrivalent IM Intramuscular 06/12/2022 Administe red Influenza High Dose IM Intramuscular 06/15/2023 Administer ed PPSV23 (Pnemovax) IM Intramuscular 11/17/2019 Partia lly Administered Social History Tobacco Use: Social History Observation Description Date Details (start date - stop date) Never Smoker NA - NA Tobacco Use/Smoking Question Answer Notes Patient is a nonsmoker Additional Findings: Tobacco Non-User Cu rrent non-smoker, currently using no form of tobacco Alcohol Screen Question Answer Notes Did you have a drink contain ing alcohol in the past year? Yes How often did you have a dri nk containing alcohol in the past year? Monthly or less (1 point) How many drinks did you have on a typical day when you were drinking in the past year? 1 or 2 drinks (0 point) How often did you have 6 or more drinks on one occasion in the past year? Never (0 point) Points 1 Interpretation Negative Problems Problem Type SNOMED Code ICD Code Onset Dates Problem Status W/U Status Risk Notes Problem 831706738 Reflux esophagit is (K21.00) Active confirmed Problem 456585386 Elevated liver e nzymes (R74.8) Active confirmed Problem 54427161 Other chronic pa in (G89.29) Active confirmed Problem 41382620 Irritable bowel syndrome without diarrhea (K58.9) Active confirmed Problem 35931023 Other cirrhosis of liver (K74.69) Active confirmed Problem 162985344 Dorsalgia, unspe cified (M54.9) Active confirmed Problem 3536363 Prediabetes (R73.09) Active confirmed Problem 619385570 Non morbid obesi ty due to excess calories (E66.09) Active confirmed Problem Sciatica, left (M54.32) Active confirme d Problem 61627153 Hearing loss, bi lateral (H91.93) Active confirmed Problem 865960530 Fatty liver (K76.0) Active confirmed Problem 393466049 Panic attack (F41.0) Active confirmed Problem 022181902 Pure hypercholesterolemia (E78.00) Active confirmed Problem 056932688 Elevated PSA (R97.20) Active confirme d Problem 237964497 Arthritis, low b ack (M46.90) Active confirmed Vital Signs Blood pressure diastolic 70 mm Hg 11/10/2024 mj ght is up 3 pounds since 01-25-24 Height 69 in 11/10/2024 weight is up 3 pounds since 01-25-24 Blood pressure systolic 142 mm Hg 11/10/2024 weig ht is up 3 pounds since 01-25-24 Weight 220 lbs 11/10/2024 weight is up 3 pounds since 01-25-24 BMI 32.48 kg/m2 11/10/2024 weight is up 3 pounds since 01-25-24 Encounters Encounter Location Date Provider Diagnosis Bruce Dupree MD [address] [place] [id number] 01/22/2025 Bruce Dupree Prediabetes R73.09 ; Elevated liver enzymes R74.8 and Pure hypercholesterolemia E78.00 Bruce Dupree MD [address] [place] [address] Drive [address] [place] [id number] 01/25/2024 Bruce Dupree Other chronic pain G 89.29 ; Pain in left knee M25.562 ; Non morbid obesity due to excess calories E66.09 ; Elevated liver enzymes R74.8 ; Fatty liver K76.0 ; Oral mucosal lesion K13.70 ; Prediabetes R73.09 ; Pure hypercholesterolemia E78.00 ; Elevated PSA R97.20 ; Irritable bowel syndrome without diarrhea K58.9 ; Colon cancer screening Z12.11 and Depression screening Z13.31 Bruce Dupree MD [address] [place] [id number] 11/10/2024 Bruce Dupree Vertigo R42 Bruce Dupree MD [address] [place] [id number] 01/28/2024 Bruce Dupree MD [address] [place] [id number] 05/04/2024 Bruce Dupree MD [address] [place] [id number] 05/25/2024 Bruce Dupree Reflux esophagitis K 21.00 Bruce Dupree MD [address] [place] [id number] 07/20/2024 Bruce Dupree MD [address] [place] [id number] 08/31/2024 Bruce Dupree Panic attack F41.0 Bruce Dupree MD [address] [place] [id number] 09/05/2024 Bruce Dupree Low back pain M54.5 Bruce Dupree MD [address] [place] [id number] 11/07/2024 Bruce Dupree Pure hypercholestero lemia E78.00 Assessments Encounter Date Diagnosis (ICD Code) Assessment Notes Treatment Notes Treatment Clinical Notes Section Notes 01/22/2025 Prediabetes (ICD-10 - R73.09) 01/25/2024 Other chronic pain (ICD-10 - G89.29) 01/25/2024 Pain in left knee (ICD-10 - M25.562) is going to have platelet rich 11/10/2024 Vertigo (ICD-10 - R42) refer ral to physical therapy for vestibular therapy 05/25/2024 Reflux esophagitis (ICD-10 - K21.00) 08/31/2024 Panic attack (ICD-10 - F41.0) 09/05/2024 Low back pain (ICD-1 0 - M54.5) 11/07/2024 Pure hypercholesterolemia (ICD-10 - E78.00) 01/22/2025 Elevated liver enzym es (ICD-10 - R74.8) 01/25/2024 Non morbid obesity d ue to excess calories (ICD-10 - E66.09) not dieting, suggested dietary discreation 01/22/2025 Pure hypercholesterolemia (ICD-10 - E78.00) 01/25/2024 Elevated liver enzym es (ICD-10 - R74.8) doing well on meds, will continue current regiment 01/25/2024 Fatty liver (ICD-10 - K76.0) will continue to monitor 01/25/2024 Oral mucosal lesion (ICD-10 - K13.70) will recheck in 3 weeks 01/25/2024 Prediabetes (ICD-10 - R73.09) stable, no need for medication at this time 01/25/2024 Pure hypercholesterolemia (ICD-10 - E78.00) stable, will continue current regiment 01/25/2024 Elevated PSA (ICD-10 - R97.20) stable, will continue to monitor 01/25/2024 Irritable bowel syndrome without diarrhea (ICD-10 - K58.9) stabke, will continue current regiment 01/25/2024 Colon cancer screeni ng (ICD-10 - Z12.11) guaiac negative 01/25/2024 Depression screening (ICD-10 - Z13.31) negative screen 11/10/2024 Other PATIENT WANTED TO TAKE HIS ORDER WITH HIM HE IS CALLING A FEW PLACES AND WILL DECIDE WHERE TO GO Plan Of Treatment Pending Test Test Name Order Date Electrocardiogram (EKG) 11/01/2015 Electrocardiogram (EKG) 09/08/2018 Electrocardiogram (EKG) 02/10/2019 CT ABD & PELVIS NO CONTRAST 04/26/2015 MRI LUMBAR SPINE NO CONTRAST 04/05/2023 RENAL US WITH BLADDER 03/26/2015 Comprehensive [place]. Panel Fast Liver Panel 01/22/2025 Lipid Panel 01/22/2025 PSA,Total (Free>4and<10) 01/22/2025 Microalbumin, Random 01/22/2025 US abdomen comp w elastography US abdomen limited 12/07/2022 US abdomen complete 06/09/2021 Hemoglobin A1c 01/22/2025 UA ClnCatch+Micro w/rflx Cult 01/22/2025 Next Appt Details Provider Name:Bruce waldron, 01/29/2025 10:30:00 AM, [address] [place] [address], Suite [facility], [place], [place], [id number], Insurance Providers Payer Name Payer Address Payer Phone Subscriber Number Group Number Insured Name Patient Relationship to Insured Coverage Start Date Coverage End Date MEDICARE NHIC DODIE [address] [place] [address] [id number] Paul Smith Self - patient is the insured [employer] [place] [address] [place] [phone] [id number] Paul Smith Self - patient is the insured Medical (General) History Medical History History ICD Code colonoscopy 09/04/2010 due 2020 done 201 9 negative repeat in 10 years Surgical History Surgery Date(Month/Year) RT Cataract Extraction w/Intraocular gustavo s insertion (Dr. Retana) 11/2018
[2025-01-22 13:26] LABS: Alanine Aminotransferase 34 U/L (0-40); Albumin Level 4.2 g/dL (3.5-5.0); Alkaline Phosphatase 85 U/L (39-117); Anion Gap 14 (12-20); Aspartate Amino Transferase 50 U/L (5-37); Bilirubin Direct 0.4 mg/dL (0.0-0.5); Bilirubin Total 1.4 mg/dL (0.0-1.0); Blood Urea Nitrogen 20 mg/dL (9-16); Calcium 9.2 mg/dL (8.4-10.2); Carbon Dioxide 24 mmol/L (22-29); Chloride 107 mmol/L (96-108); Cholesterol 203 mg/dL (<200); Estimated Glomerular Filt Rate > 60; Glucose Fasting 109 mg/dL (60-99); Potassium 3.7 mmol/L (3.3-5.1); Sodium 141 mmol/L (135-145); Total Protein 7.4 g/dL (6.5-8.0); Triglycerides 122 mg/dL (<150)
[2025-01-22 13:39] LABS: HDL Cholesterol 53 mg/dL (>40); LDL Cholesterol Calculated 126 mg/dL (<100)
== END 2025-01-22 11:20 | disposition home or self-care (01) ==
LOC: HO.LNP 11:19
PROVIDERS: Visit Provider Internal Medicine
DX: R73.03 Prediabetes (principal); Z12.5 Encounter for screening for malignant neoplasm of prostate; R74.8 Abnormal levels of other serum enzymes; E78.00 Pure hypercholesterolemia, unspecified
CPT/HCPCS: 80053; 80061; 80076; 81001; 82043; 82248; 82570; 83036; 84153; 85025

== ENCOUNTER 2025-08-07 11:17 | Outpatient (REF) | payer MEDICARE, SELFPAY ==
[2025-08-07 11:43] LABS: Alanine Aminotransferase 26 U/L (0-40); Albumin Level 4.4 g/dL (3.5-5.0); Alkaline Phosphatase 86 U/L (39-117); Aspartate Amino Transferase 33 U/L (5-37); Cholesterol 199 mg/dL (<200); HDL Cholesterol 59 mg/dL (>40); Total Protein 7.7 g/dL (6.5-8.0); Triglycerides 133 mg/dL (<150)
[2025-08-07 13:18] LABS: Reflex LDLD? No
== END 2025-08-07 11:18 | disposition home or self-care (01) ==
LOC: HO.LNP 11:17
PROVIDERS: Visit Provider Internal Medicine
DX: R73.09 Other abnormal glucose (principal); E78.00 Pure hypercholesterolemia, unspecified
CPT/HCPCS: 80061; 80076; 82947; 83036

== ENCOUNTER 2025-08-22 09:42 | Outpatient (REF) | payer MEDICARE, SELFPAY ==
--- NOTE | ~2025-08-22 | US_ITS ---
EXAMINATION: US ABDOMEN LIMITED WITH LIVER ELASTOGRAPHY HISTORY: Other cirrhosis of liver TECHNIQUE: Real-time grayscale ultrasound imaging of the right upper quadrant was performed and images were reviewed. COMPARISON: Comparison is made with the prior examination dated 05/19/2024. FINDINGS: Liver: The right lobe of the liver measures 18.3 cm in size. The left lobe of the liver measures 8.0 cm in size. The liver demonstrates coarsened echotexture. No focal mass or intrahepatic biliary ductal dilatation is identified. There is normal hepatopedal flow in the portal vein. Ultrasound elastography of the liver was performed with 10 separate measurements of the liver parenchyma with the patient in the supine position. Measurements were obtained approximately 2 cm below Kimberley's capsule and perpendicular to the capsule. The median shear wave velocity is 1.52 m/s (previously 1.35 m/s). The interquartile range/median (IQR/median) is 0.13. Gallbladder and biliary tree: There is a 7 mm gallbladder polyp. The gallbladder is otherwise unremarkable, without evidence of calculi, wall thickening, or pericholecystic fluid. There is no sonographic Shipman sign. The common bile duct is normal in caliber measuring 2 mm. Right Kidney: The right kidney measures 11.5 cm in length. There is a 5.4 x 4.6 x 4.8 cm cyst in the interpolar region. There is no hydronephrosis or calculi. Pancreas: The pancreas is obscured by bowel gas. Abdominal aorta and inferior vena cava: The visualized portions of the abdominal aorta and inferior vena cava are normal in caliber. There is no free fluid in the right upper quadrant. US/US abdomen kulkarni w elastography IMPRESSION: 1. Coarsened hepatic echotexture. 2. 7 mm gallbladder polyp. The median shear wave velocity in the liver is 1.52 m/s, corresponding to a median liver stiffness of 7.25 kPa. The IQR/median value is 0.13. This is indicative of a quality data set. Findings are indicative of a low elastography value which rules out advanced chronic liver disease in asymptomatic patients. REFERENCE: Society of Radiologists in Ultrasound Liver Stiffness Thresholds (2020): LIVER STIFFNESS THRESHOLDS: *Shear wave velocity less than 1.3 m/s (Liver Stiffness equal or less than 5 kPa): High probability of being normal. *Shear wave velocity less than 1.7 m/s (Liver Stiffness less than 9 kPa): In the absence of other known clinical signs, rules out compensated advanced chronic liver disease. *Shear wave velocity between 1.7-2.1 m/s (Liver Stiffness 9-13 kPa): Suggestive of compensated advanced chronic liver disease but need further test for confirmation. *Shear wave velocity between 2.1-2.4 m/s (Liver Stiffness 13-17 kPa): Rules in compensated advanced chronic liver disease. *Shear wave velocity greater than 2.4 m/s (Liver Stiffness over 17 kPa): Suggestive of clinically significant portal hypertension. QUALITY OF DATA SET: *IQR/Median value equal or less than 0.15 implies a quality data set. *IQR/Median value over 0.15 implies a poor quality data set. SIGNIFICANT CHANGE FROM PRIOR EXAM: Significant change if liver stiffness measurement is 10% or greater from prior exam. OTHER CONSIDERATIONS: The stage of liver fibrosis may be overestimated in the setting of acute hepatitis, liver inflammation, elevated liver function tests, hepatic vascular congestion, obstructive cholestasis, non-fasting state, and infiltrative diseases such as amyloidosis and lymphoma. In some patients with NAFLD, the liver stiffness thresholds for compensated advanced chronic liver disease may be lower. In causes other than viral hepatitis and NAFLD, liver stiffness thresholds are not well established. Electronically signed by: Josh Rowell MD 08/22/2025 11:06 AM YRIS
--- OUTSIDE RECORDS SUMMARY | 2025-08-22 10:47 | XMS_ITS | Clinical Summary ---
Author Organization [facility] Address [address] [phone] Phone Care Team Providers Care Solutions Operator Name Role Phone Bruce Dupree MD Primary Care Provider Social History Tobacco Use Types Packs/Day Years Used Date Smoking Tobacco: Never Assessed Sex and Gender Information Value Date Recorded Sex Assigned at Not on file Legal Sex Male 10:03 PM EDT Gender Identity Not on file Sexual Orientation Not on file Plan of Treatment Not on file Medical Devices Not on file Insurance [employer] MEDEX SUPPLEMENT MEDICARE PART A & B [employer] MEDEX SUPPLEMENT MEDICARE PART A & B [employer] MEDEX SUPPLEMENT MEDICARE PART A & B [employer] MEDEX SUPPLEMENT MEDICARE PART A & B [employer] MEDEX SUPPLEMENT MEDICARE PART A & B [employer] MEDEX SUPPLEMENT MEDICARE PART A & B [employer] MEDEX SUPPLEMENT MEDICARE PART A & B [employer] MEDEX SUPPLEMENT MEDICARE PART A & B [employer] MEDEX SUPPLEMENT MEDICARE PART A & B Care Teams Solutions Operator Relationship Specialty Start Date End Date Bruce Dupree MD [address] [place] [address] [place] [address] PCP - General Internal Medicine 08/17/17 Additional Source Comments The information contained in this document represents components of the legal health record. It is not the complete legal health record.[facility]
--- OUTSIDE RECORDS SUMMARY | 2025-08-22 10:47 | XMS_ITS | Encounter Summary ---
Author Organization [facility] Address [address] [place] [address] Phone Care Team Providers Care Family Medicine Resident Name Role Phone Bruce Dupree MD Primary Care Provider Encounter Details Date Type Department Care Team (Late st Contact Info) Description 08/17/2017 Transcribe Orders [facility] [address] [place] [address] Anival Garza DO [address] [facility], [address] [place], [place] [phone] Hypersensitivity, initial encounter (Primary Dx) Social History Tobacco Use Types Packs/Day Years Used Date Smoking Tobacco: Never Assessed Sex and Gender Information Value Date Recorded Sex Assigned at Not on file Legal Sex Male 10:03 PM EDT Gender Identity Not on file Sexual Orientation Not on file documented as of this encounter Plan of Treatment Not on file documented as of this encounter Results * Tryptase (08/17/2017 4:06 PM EST) TRYPTASE 4.1 <11.5 ng/mL [facility] DPT OF LAB MED AND PAT+ Blood 08/17/2017 4:06 PM EST 08/17/2017 4:10 PM EST us Anival Garza DO LAB BLOOD ORDERABLES Final R esult [facility] DPT OF LAB MED AND PAT+ [address] [place] [address] * (ABNORMAL) Comprehensive metabolic panel (08/17/2017 4:06 PM EST) Pathologist [facility] SODIUM 140 133 - 146 mmol/L [facility] POTASSIUM 3.6 3.3 - 5.1 mmol/L [facility] CHLORIDE 99 96 - 108 mmol/L [facility] CO2 24 21 - 35 mmol/L [facility] BUN 22(H) 6 - 19 mg/dL [facility] CREATININE 1.00 0.5 - 1.5 mg/dL [facility] GLUCOSE 90 70 - 99 mg/dL [facility] ALBUMIN 4.3 3.9 - 4.8 g/dL [facility] TOTAL PROTEIN 7.3 6.5 - 8.0 g/dL [facility] CALCIUM 8.8 8.4 - 10.3 mg/dL [facility] ALKALINE PHOSPHATASE 88 39 - 117 U/L [facility] TOTAL BILIRUBIN 0.9 0 - 1.2 mg/dL [facility] AST 46(H) 0 - 37 U/L [facility] ALT 55(H) 0 - 40 U/L [facility] GLOBULIN 3.0 1 - 4.8 g/dL [facility] EGFR >60 >60 mL/min/1.7 3m2 [facility] Comment:Abnormal if <60. If patient is -Jamaican, multiply the result by 1.21. ANION GAP 21(H) 10 - 20 mmol/L [facility] Blood 08/17/2017 4:06 PM EST 08/17/2017 4:10 PM EST Anival Garza DO LAB BLOOD BKR ORDERABLES Fin al Result [facility] [address] [place], [place] [phone] * (ABNORMAL) CBC and differential (08/17/2017 4:06 PM EST) [facility] WBC 6.41 3.40 - 11.20 K/uL [facility] RBC 5.46 4.50 - 5.50 M/uL [facility] HGB 16.7 13.0 - 17.0 g/dL [facility] HCT 47.7 40.0 - 51.0 % [facility] PLT 233 130 - 400 K/uL [facility] MCV 87.4 79.0 - 98.0 fL [facility] MCH 30.6 27.0 - 34.8 pg [facility] MCHC 35.0 31.5 - 36.0 g/dL [facility] RDW 13.2 10.8 - 14.6 % [facility] MPV 10.6 9.4 - 12.4 fl [facility] NRBC 0.00 /100 WBCs [facility] ABSOLUTE NRBC 0.00 K/uL [facility] DIFF METHOD Auto [facility] NEUTS 57.2 45.30 - 77.70 % [facility] LYMPHS 24.2 12.30 - 39.70 % [facility] MONOS 11.1 4.10 - 12.80 % [facility] EOS 6.1 0 - 7.2 % [facility] BASOS 1.1 0 - 2.80 % [facility] Granulocytes, immature (%) 0.3 0.0 - 0.9 % [facility] ABSOLUTE NEUTS 3.67 1.40 - 7.70 K/uL [facility] ABSOLUTE LYMPHS 1.55 0.60 - 3.20 K/uL [facility] ABSOLUTE MONOS 0.71(H) 0.11 - 0.59 K/uL [facility] ABSOLUTE EOS 0.39 0.01 - 0.50 K/uL [facility] ABSOLUTE BASOS 0.07 0.00 - 0.08 K/uL [facility] Granulocytes, immature 0.02 0.00 - 0.05 K/uL [facility] Blood 08/17/2017 4:06 PM EST 08/17/2017 4:10 PM EST us Anival Garza DO LAB BLOOD BKR ORDERABLES Fin al Result [address] [address] documented in this encounter Visit Diagnoses Diagnosis Hypersensitivity, initial encounter- Primary documented in this encounter Care Teams Family Medicine Resident Relationship Specialty Start Date End Date Bruce Dupree MD [address] [place] [address] Dr [place] [phone] PCP - General Internal Medicine 08/17/17 documented as of this encounter Additional Source Comments The information contained in this document represents components of the legal health record. It is not the complete legal health record.[facility]
== END 2025-08-22 09:43 | disposition home or self-care (01) ==
LOC: HO.US 09:42
PROVIDERS: PCP Internal Medicine; Visit Provider Internal Medicine
DX: K76.0 Fatty (change of) liver, not elsewhere classified (principal); R79.89 Other specified abnormal findings of blood chemistry; K74.69 Other cirrhosis of liver
CPT/HCPCS: 76705; 76981

== ENCOUNTER → 2025-08-22 09:54 | Outpatient (BNV) | payer MEDICARE, SELFPAY | PROVIDERS: PCP Internal Medicine; Visit Provider Radiology Diagnostic Radiology | DX: K74.60 Unspecified cirrhosis of liver (principal) | CPT/HCPCS: 76705 ==